=== PATIENT | female | born 1950 | race Caucasian/White ===

== ENCOUNTER 2019-05-21 16:20 | Emergency (ER) | payer MEDICARE, MEDICAID, SELFPAY ==
[2019-05-21 16:22] VITALS: BP 141/64; PULSE 85; RESP 22; TEMP 36.5; O2SAT 97; BMI 51.5
--- NOTE | 2019-05-21 16:24 | ED_ITS ---
Entered by Jeanette Murry, acting as scribe for Derick Nolen DO HPI - Neuro Symptoms/Deficit General: Chief Complaint: Neuro Symptoms/Deficit Stated Complaint: L SIDE FACE PAIN/NUMBNESS Time Seen by Provider: 05/21/19 16:21 Source: patient Mode of arrival: EMS Limitations: no limitations History of Present Illness: HPI Narrative: 68 yo f came to the er by [facility] for a headache and left sided face tingling. 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 Pt states that she is out of breath and she also states that she has under alot of stress. Pts just had a stroke so she has been taking care of him. Pt was going to [facility] and she couldn't see that form to sign so she admitted that it was not normal for her at all. Pt also states that she has pain and burning with urination along with some epigastric pain. 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 police captain) Location: left face History of same: No Severity: mild Quality: weak, numb and tingling Relieving factors: none Exacerbating factors: none Context: sudden onset On Anticoagulants: No Associated symptoms: Reports headache(s); Deny chest pain, malaise, nausea or vomiting Treatments Prior to Arrival: none Review of Systems General: Reports: other (negative unless marked) Const: Denies: fever, chills, body aches, change in appetite, fatigue or malaise ENMT: Denies: throat pain, ear pain, nasal discharge or nasal congestion Card: Reports: shortness of breath on exertion; Denies: chest pain, edema or shortness of breath when lying down Resp: Denies: shortness of breath, productive cough or non-productive cough GI: Denies: abdominal pain, nausea, vomiting, vomiting blood, coffee grounds in vomit, diarrhea, constipation, bloating, blood in stool or black tarry stool : Denies: flank pain, difficulty urinating, painful urination, urinary frequency or urinary urgency Skin/Breast: Denies: rash or itching Neuro: Reports: headache, numbness in extremities, weakness in extremities and dizziness PFSH ED PFSH: Social History Smoking and tobacco status: never smoked NIH stroke score NIHSS: Level Of Consciousness - 1a: 0 Level Of Consciousness Questions - 1b: Both Correct Level Of Consciousness Commands - 1c: Both Correct Best Gaze - 2: Normal Visual Hodge - 3: No Visual Loss Facial Palsy - 4: Normal Motor Arm Right - 5: No Drift Motor Arm Left - 5: No Drift Motor Leg Right - 6: No Drift Motor Leg Left - 6: No Drift Limb Ataxia - 7: Absent Sensory - 8: Normal Best Language - 9: No Aphasia Dysarthia - 10: Normal Extinction And Inattention - 11: 0 Score: Total Score: 0 Physical Exam Const: COMMON NORMALS: no apparent distress GENERAL APPEARANCE: cooperative and comfortable ORIENTATION/CONSCIOUSNESS: Yes awake, Yes oriented to person, Yes oriented to place and Yes oriented to time HENMT: COMMON NORMALS: normocephalic, head/scalp atraumatic, hearing grossly normal bilaterally, external ears normal, EAC's normal, TM's normal bilaterally, nasal mucous membranes and turbinates normal, moist oral mucous membranes and oropharynx normal HEAD & SCALP: normocephalic and atraumatic NOSE: nasal mucous membranes and turbinates normal EXTERNAL EAR: Yes external ears normal EXTERNAL AUDITORY CANAL: EAC's normal TYMPANIC MEMBRANE: TM's normal bilaterally Eye: COMMON NORMALS: PERRL, EOMs intact bilaterally, conjunctivae normal and no scleral icterus CONJUNCTIVA: Yes conjunctivae normal PUPIL: Yes PERRL Neck/C-Spine: COMMON NORMALS: full ROM, no lymphadenopathy, supple and no JVD Lymph: LYMPHATIC: no lymphadenopathy noted and no lymphedema noted Resp: COMMON NORMALS: normal respiratory effort, no retractions, no use of accessory muscles and clear to auscultation bilaterally AUSCULTATION: clear to auscultation bilaterally Cardio: COMMON NORMALS: no JVD, regular rate, regular rhythm and no murmurs RATE: regular rate RHYTHM: regular rhythm GI: COMMON NORMALS: soft to palpation and no hepatosplenomegaly AUSCULTATION: Yes normoactive bowel sounds PALPATION: Yes soft, No tender, No guarding and Yes no hepatosplenomegaly Extremity: COMMON NORMALS: normal to inspection, normal capillary refill, no clubbing, cyanosis or edema, no calf tenderness and no pedal edema Neuro: SENSORIUM/ORIENTATION: Yes oriented to person, Yes oriented to place and Yes oriented to time Skin: COMMON NORMALS: no rashes or lesions noted GENERAL SKIN EXAM: no rashes or lesions noted Course ED course: Symptoms have resolved. Patient is awake alert and oriented she had no focal neurologic deficits on arrival and has none now. Given meclizine PRN for the dizziness will go ahead and discharge her home follow-up with her primary care doctor return if has worsening problems. Will also treat for ehr cystitis. Follow up with PCP within 1 wk Vital Signs: Vital signs: Vital Signs Temperature 97.7 F 05/21/19 16:22 Pulse Rate 78 05/21/19 18:36 Respiratory Rate 16 05/21/19 18:36 Blood Pressure 160/105 05/21/19 18:36 Pulse Oximetry 97 05/21/19 16:22 MDM - Neuro Symptoms/Deficit Lab Data: Labs: Lab Results 05/21/19 05/21/19 05/21/19 Range/Units 16:49 16:49 16:49 WBC 11.5 H (4.0-10.0) 10^3/ uL RBC 4.88 (4.1-5.3) 10^6/u L Hgb 11.6 (11.5-15.3) g/dL Hct 38.6 (37.0-47.0) % MCV 79.1 L (81-99) fL MCH 23.8 L (28.0-34.0) pg MCHC 30.1 (30.0-36.0) g/dL RDW 18.4 H (12.1-15.1) % Plt Count 357 (130-400) 10^3/c mm MPV 9.9 (7.4-10.4) fL Neut % (Auto) 82.5 % Lymph % (Auto) 11.2 % [place] % (Auto) 4.8 % Eos % (Auto) 1.0 % Baso % (Auto) 0.2 % Neut # (Auto) 9.5 H (1.8-7.7) 10^3/u L Lymph # (Auto) 1.3 (0.8-4.8) 10^3/u L [place] # (Auto) 0.6 (0.2-0.9) 10^3/u L Eos # (Auto) 0.1 (0.0-0.8) 10^3/u L Baso # (Auto) 0.0 (0.0-0.1) 10^3/u L Nucleated RBC % (a uto) 0 % Nucleated RBCs # 0.0 /100WBC PT 13.00 (10.5-13.3) SECO NDS INR 0.95 (0.8-1.2) APTT 36.1 (23.9-36.7) SECO NDS Sodium 139 (136-145) mmol/L Potassium 4.1 (3.5-5.1) mmol/L Chloride 100 (98-107) mmol/L Carbon Dioxide 28 (22-29) mmol/L Anion Gap 15.1 (5-19) BUN 11 (8-23) mg/dL Creatinine 0.8 (0.5-0.9) mg/dL GFR Calculation 71.8 L (90-130) mL/min Glucose 101 (65-115) mg/dL Calcium 9.6 (8.5-10.5) mg/dL Total Bilirubin 0.3 (0.15-1.2) mg/dL AST 14 (0-32) U/L ALT 8 (0-33) U/L Alkaline Phosphata se 111 H (35-105) IU/L Total Protein 7.4 (6.6-8.7) g/dL Albumin 3.6 (3.5-5.2) g/dL Globulin 3.8 (1.3-4.6) g/dL Urine Color (Yellow) Urine Appearance (CLEAR) Urine pH (5-7) Ur Specific Gravit y (1.005-1.030) Urine Protein (Negative) Urine Glucose (UA) (Normal) Urine Ketones (Negative) Urine Blood (Negative) Urine Nitrate (Negative) Urine Bilirubin (NEGATIVE) Urine Urobilinogen (Negative) mg/dL Ur Leukocyte Nazia ase (Negative) Urine RBC (0-2) /hpf Urine WBC (0-5) /hpf Ur Squamous Epith Cells (0-5) Urine Bacteria (NONE) Urine Opiates Scre en (Negative) ng/mL Ur Barbiturates Sc reen (Negative) ng/mL Ur Phencyclidine S crn (Negative) ng/mL Ur Amphetamines Sc reen (Negative) ng/mL U Benzodiazepines Scrn (Negative) ng/mL Urine Cocaine Scre en (Negative) ng/mL U Marijuana (THC) Screen (Negative) ng/mL 05/21/19 05/21/19 Range/Units 17:36 17:36 WBC (4.0-10.0) 10^3/ uL RBC (4.1-5.3) 10^6/u L Hgb (11.5-15.3) g/dL Hct (37.0-47.0) % MCV (81-99) fL MCH (28.0-34.0) pg MCHC (30.0-36.0) g/dL RDW (12.1-15.1) % Plt Count (130-400) 10^3/c mm MPV (7.4-10.4) fL Neut % (Auto) % Lymph % (Auto) % [place] % (Auto) % Eos % (Auto) % Baso % (Auto) % Neut # (Auto) (1.8-7.7) 10^3/u L Lymph # (Auto) (0.8-4.8) 10^3/u L [place] # (Auto) (0.2-0.9) 10^3/u L Eos # (Auto) (0.0-0.8) 10^3/u L Baso # (Auto) (0.0-0.1) 10^3/u L Nucleated RBC % (a uto) % Nucleated RBCs # /100WBC PT (10.5-13.3) SECO NDS INR (0.8-1.2) APTT (23.9-36.7) SECO NDS Sodium (136-145) mmol/L Potassium (3.5-5.1) mmol/L Chloride (98-107) mmol/L Carbon Dioxide (22-29) mmol/L Anion Gap (5-19) BUN (8-23) mg/dL Creatinine (0.5-0.9) mg/dL GFR Calculation (90-130) mL/min Glucose (65-115) mg/dL Calcium (8.5-10.5) mg/dL Total Bilirubin (0.15-1.2) mg/dL AST (0-32) U/L ALT (0-33) U/L Alkaline Phosphata se (35-105) IU/L Total Protein (6.6-8.7) g/dL Albumin (3.5-5.2) g/dL Globulin (1.3-4.6) g/dL Urine Color Yellow (Yellow) Urine Appearance Clear (CLEAR) Urine pH 6 (5-7) Ur Specific Gravit y 1.010 (1.005-1.030) Urine Protein Neg (Negative) Urine Glucose (UA) Norm (Normal) Urine Ketones Negative (Negative) Urine Blood 2+ H (Negative) Urine Nitrate Negative (Negative) Urine Bilirubin Neg (NEGATIVE) Urine Urobilinogen Norm (Negative) mg/dL Ur Leukocyte Nazia ase Negative (Negative) Urine RBC 0-4 H (0-2) /hpf Urine WBC 15-25 H (0-5) /hpf Ur Squamous Epith Cells 5-10 H (0-5) Urine Bacteria Trace (NONE) Urine Opiates Scre en Negative (Negative) ng/mL Ur Barbiturates Sc reen Negative (Negative) ng/mL Ur Phencyclidine S crn Negative (Negative) ng/mL Ur Amphetamines Sc reen Negative (Negative) ng/mL U Benzodiazepines Scrn Positive H (Negative) ng/mL Urine Cocaine Scre en Negative (Negative) ng/mL U Marijuana (THC) Screen Negative (Negative) ng/mL Discharge Plan Discharge Patient Disposition: Home, Self-Care Clinical Impression: Orthostasis, Dizziness, Cystitis Condition: Stable Prescriptions: New meclizine 25 mg tablet 25 mg PO QID PRN (Reason: dizziness) Qty: 20 RF: 0 Macrobid 100 mg capsule 100 mg PO BID 7 Days Qty: 14 RF: 0 Referrals: Riley Walker MD [Primary Care Provider] - Discharge Diet: Usual diet Discharge Activity: Increase activity as tolerated Interventions: ED Discharge Assessment Last Done: 05/21/19 18:36 Discharge Date/Time: 05/21/19 18:37 Coding Level of Care Code ED Scouring Pads Supervisor for Chg Fwd Exam Comprehensive The documentation recorded by the Jeanmarie davidson Stephanie Lyn, accurately reflects the service I personally performed and the decisions made by Callum chaves Curtis L, DO May 21, 2019 16:20
--- NOTE | 2019-05-21 16:36 | XR_ITS ---
WS: [id number] XR chest 1V portable [id number] REASON FOR EXAM: dyspnea FINDINGS: The cardiac silhouette is borderline enlarged. Increased peribronchial markings are seen bilaterally. These are slightly accentuated since earlier e xam of October 24, 2017. There is degenerate changes with ankylosing findings throughout the thoracic spine. The hilum and apices normal. XR/XR chest 1V portable [id number] IMPRESSION: Increased markings are seen throughout both lung [place] compared to previous ex am most likely from bronchitis.
--- NOTE | 2019-05-21 16:36 | ECG_ITS ---
Measurements Intervals [place] Rate: 79 P: 7 IA: 133 QRS: 34 QRSD: 105 T: 18 QT: 379 QTc: 436 SINUS RHYTHM Compared to ECG 10/11/2016 23:16:07 No significant changes Electronically Signed On 05-22-2019 16:53:18 DIRECTOR PACKAGING by Tulio Faust M.D. [email or web address]
--- NOTE | 2019-05-21 16:36 | CTR_ITS ---
PROCEDURE INFORMATION: Exam: CT Head Without Contrast Exam date and time: 05/21/2019 5:01 PM Age: 68 years old Clinical indication: Weakness, facial; Additional info: Symptoms of acute stroke TECHNIQUE: Imaging protocol: Computed tomography of the head without contrast. Total DLP: 847.29 mGy-cm Radiation optimization: All CT scans at this facility use at least one of these dose optimization techniques: automated exposure control; mA and/or kV adjustment per patient size (includes targeted exams where dose is matched to clinical indication); or iterative reconstruction. COMPARISON: CT head wo con* [id number] 06/24/2015 2:00 PM FINDINGS: Brain: Unremarkable for age. No hemorrhage. Unremarkable white matter. No mass effect. No visible evidence of active or acute intracranial pathologic process or trauma. Ventricles: Unremarkable for age. No ventriculomegaly. Bones/joints: Unremarkable. No acute fracture. Sinuses: Visualized sinuses are unremarkable. No fluid levels. Mastoid air cells: Visualized mastoid air cells are well aerated. Soft tissues: Unremarkable. CT/CT head wo con* [id number] IMPRESSION: 1. No acute intracranial abnormality. 2. Aspects score 10 Radiation Dose CTDIVOL = (mGy): DLP = 847.29 (mGy-cm)
[2019-05-21 16:56] LABS: Basophils % 0.2 %; Eosinophils # 0.1 10^3/uL (0.0-0.8); Hematocrit 38.6 % (37.0-47.0); Hemoglobin 11.6 g/dL (11.5-15.3); Lymphocytes # 1.3 10^3/uL (0.8-4.8); Lymphocytes % 11.2 %; Mean Corpuscular HGB Conc 30.1 g/dL (30.0-36.0); Mean Corpuscular Hemoglobin 23.8 pg (28.0-34.0); Mean Corpuscular Volume 79.1 fL (81-99); Mean Platelet Volume 9.9 fL (7.4-10.4); Monocytes # 0.6 10^3/uL (0.2-0.9); Monocytes % 4.8 %; Neutrophils # 9.5 10^3/uL (1.8-7.7); Neutrophils % 82.5 %; Nucleated Red Blood Cells % 0 %; Platelet Count 357 10^3/cmm (130-400); Red Blood Count 4.88 10^6/uL (4.1-5.3); Red Cell Distribution Width 18.4 % (12.1-15.1); White Blood Count 11.5 10^3/uL (4.0-10.0)
[2019-05-21 17:05] LABS: INR 0.95 (0.8-1.2)
[2019-05-21 17:06] LABS: Partial Thromboplastin Time 36.1 SECONDS (23.9-36.7)
[2019-05-21 17:12] LABS: Alanine Aminotransferase 8 U/L (0-33); Albumin Level 3.6 g/dL (3.5-5.2); Alkaline Phosphatase 111 IU/L (35-105); Anion Gap 15.1 (5-19); Aspartate Amino Transferase 14 U/L (0-32); Blood Urea Nitrogen 11 mg/dL (8-23); Calcium 9.6 mg/dL (8.5-10.5); Carbon Dioxide 28 mmol/L (22-29); Chloride 100 mmol/L (98-107); Globulin 3.8 g/dL (1.3-4.6); Glomerular Filtration Rate 71.8 mL/min (90-130); Glucose 101 mg/dL (65-115); Potassium 4.1 mmol/L (3.5-5.1); Sodium 139 mmol/L (136-145); Total Bilirubin 0.3 mg/dL (0.15-1.2); Total Protein 7.4 g/dL (6.6-8.7)
[2019-05-21 18:05] LABS: Add Urine Microscopic? YES; Bilirubin Urine Neg (NEGATIVE); Blood Urine 2+ (Negative); Glucose Urine UA Norm (Normal); Ketones Urine Negative (Negative); Leukocyte Esterase Urine Negative (Negative); Nitrate Urine Negative (Negative); Protein Urine Neg (Negative); Urine Appearance Clear (CLEAR); Urine Color Yellow (Yellow); Urobilinogen Urine Norm (Negative); pH Urine 6 (5-7)
[2019-05-21 18:10] LABS: Amphetamines Screen Urine Negative (Negative); Bacteria Urine TRACE; Barbiturates Screen Urine Negative (Negative); Benzodiazepines Screen Urine Positive (Negative); Cocaine Screen Urine Negative (Negative); Opiate Screen Urine Negative (Negative); PCP Screen Urine Negative (Negative); RBC Urine 0-4 /hpf (0-2); THC Screen Urine Negative (Negative); WBC Urine 15-25 /hpf (0-5)
[2019-05-21 18:11] LABS: Add Urine Culture? Yes
[2019-05-21 18:36] VITALS: BP 160/105; PULSE 78; RESP 16
== END 2019-05-21 18:37 | disposition home or self-care (01) ==
PROVIDERS: Emergency Provider Family Medicine; PCP Family Medicine
DX: R42 Dizziness and giddiness (principal); N30.90 Cystitis, unspecified without hematuria; R51 Headache; R20.0 Anesthesia of skin; R10.13 Epigastric pain
CPT/HCPCS: 12345; 36415; 70450; 71045; 80053; 80307; 81001; 85025; 85610; 85730; 87086; 93005; 99282; 99284

== ENCOUNTER 2019-11-12 19:16 | Observation (INO) | payer MEDICARE, MEDICAID, SELFPAY ==
[2019-11-12 19:17] VITALS: BP 197/90; PULSE 101; RESP 24; TEMP 37.4; O2SAT 93; BMI 51.5
--- NOTE | 2019-11-12 19:25 | XR_ITS ---
WS: [id number] Portable AP upright chest, 11/12/2019 Clinical Data: COVID exposure, fever, SOB Comparison: Portable chest, 05/21/2019. Findings: There are patchy opacities throughout both lungs consistent with acute pneumonia. The heart is normal. No pneumothorax is seen. The aortic arch and descending aorta show tortuosity. XR/XR chest 1V portable [id number] Impression: Bilateral opacities consistent with acute pneumonia.
--- NOTE | 2019-11-12 19:27 | W.ED.SOB ---
HPI - SOB/Dyspnea General: Chief Complaint: Shortness of Breath/Dyspnea Stated Complaint: Cough, Fever, SOB Time Seen by Provider: 11/12/19 19:25 History of Present Illness: HPI Narrative: This patient is a 68-year-old female presenting today with shortness of breath and cough. The symptoms have been present for about 3 days. Her with whom she lives is COVID positive and received that test result on of last week. She has not been isolated from him. He has not been very symptomatic. She has a history of bronchitis and morbid obesity. She does not normally use oxygen at home. EMS documented a room air sat of 91%. She is tachypneic. She has not measured her temperature at home. She took ibuprofen earlier today. MD elicited complaint: shortness of breath Pertinent past history: other (Episodes of bronchitis) Onset (ago): day(s) (3) Timing: constant and progressively worsening Severity: moderate Exacerbating factors: exertion, movement, coughing and talking Relieving factors: nothing Associated symptoms: Reports fever(s); Deny abdominal pain, chest pain, nausea or vomiting Review of Systems General: Reports: 10 or more systems reviewed and unremarkable except in HPI and below Const: Reports: fever(s), chills, fatigue and malaise Eyes: Denies: change in vision ENMT: Denies: odynophagia Card: Denies: chest pain or swelling of feet/ankles Resp: Reports: dyspnea and non-productive cough; Denies: productive cough GI: Denies: abdominal pain, nausea or vomiting : Denies: flank pain or difficulty voiding Musc: Denies: neck pain or back pain Skin/Breast: Denies: rash Neuro: Denies: headache(s), numbness in extremities or weakness in extremities Danny/Lymph: Denies: easy bruising or easy bleeding PFSH ED PFSH: Social History Smoking and tobacco status: never smoked Physical Exam Const: COMMON NORMALS: patient oriented x3, no limitations and alert GENERAL APPEARANCE: cooperative, in distress and anxious NUTRITIONAL APPEARANCE: obese morbidly obese ORIENTATION/CONSCIOUSNESS: Yes awake HENMT: HEAD & SCALP: normal to inspection FACE & SINUS: normal facial exam Eye: GENERAL EYE: appearance normal, both eyes and all related structures Neck/C-Spine: COMMON NORMALS: supple, no meningeal signs and no JVD Chest: COMMONS NORMALS: normal inspection of the chest Resp: EFFORT & INSPECTION: Yes tachypneic and Yes uses accessory muscles AUSCULTATION: crackles (Left greater than right) Laterality: bilateral Cardio: COMMON NORMALS: no JVD, regular rate, regular rhythm and No murmurs present (Cardio) RATE: regular rate RHYTHM: regular rhythm GI: COMMON NORMALS: Normal to inspection, nondistended, normoactive bowel sounds present, Soft to palpation and non-tender INSPECTION: Yes normal to inspection AUSCULTATION: Yes normoactive bowel sounds PALPATION: Yes Soft to palpation Back/Pelvis: COMMON NORMALS: thoracic and lumbar spine normal to inspection Extremity: COMMON NORMALS: normal to inspection Neuro: COMMON NORMALS: patient oriented x3, moves all extremities, no focal motor deficits and no sensory deficits noted SENSORIUM/ORIENTATION: Yes alert MENINGEAL SIGNS: Yes no meningeal signs Psych: COMMON NORMALS: mental status grossly normal, cooperative and normal affect Skin: COMMON NORMALS: no rashes or lesions noted and turgor normal GENERAL SKIN EXAM: no rashes or lesions noted and turgor normal Course ED course: Patient with a known household exposure to COVID. She presents with typical COVID symptoms. Sat for EMS was 91%. On my initial evaluation she was 93% here however on repeat check her sat was now 88%. I put her on 2 L of nasal cannula oxygen. She does not have a lot of comorbidities but she is obese. Chest x-ray reflects COVID pneumonia. Labs reflect a significant amount of inflammation. I gave her a dose of Lovenox, dexamethasone and I will admit her to the viral ICU. Dr. Jimenez is planning to start her on Remdesivir. Vital Signs: Vital signs: Vital Signs Temperature 99.4 F 11/12/19 19:17 Pulse Rate 92 11/12/19 20:26 Respiratory Rate 20 H 11/12/19 20:26 Blood Pressure 188/98 11/12/19 20:26 Pulse Oximetry 95 11/12/19 20:26 MDM - SOB/Dyspnea Lab Data: Labs: Lab Results 11/12/19 11/12/19 11/12/19 Range/Units 20:15 20:15 20:15 WBC 11.5 H (4.0-10.0) 10^3/ uL RBC 5.27 (4.1-5.3) 10^6/u L Hgb 12.3 (11.5-15.3) g/dL Hct 41.1 (37.0-47.0) % MCV 78.0 L (81-99) fL MCH 23.3 L (28.0-34.0) pg MCHC 29.9 L (30.0-36.0) g/dL RDW 19.2 H (12.1-15.1) % Plt Count 276 (130-400) 10^3/c mm MPV 10.3 (7.4-10.4) fL Neut % (Auto) 92.8 % Lymph % (Auto) 2.9 % [place] % (Auto) 3.4 % Eos % (Auto) 0.1 % Baso % (Auto) 0.2 % Neut # (Auto) 10.70 H (1.8-7.7) 10^3/u L Lymph # (Auto) 0.3 L (0.8-4.8) 10^3/u L [place] # (Auto) 0.4 (0.2-0.9) 10^3/u L Eos # (Auto) 0.0 (0.0-0.8) 10^3/u L Baso # (Auto) 0.0 (0.0-0.1) 10^3/u L Nucleated RBC % (a uto) 0 % Nucleated RBCs # 0.0 /100WBC PT 12.90 (12.1-14.9) SECO NDS INR 0.94 (0.8-1.2) Fibrinogen 772 H (174-498) mg/dL D-Dimer 2.80 H (0-0.59) ug/mIFE U Lactic Acid 1.2 (0.5-2.2) mmol/L Influenza Type A A g (Negative) Influenza Type B A g (Negative) SARS-CoV-2 Ag (Rap id) (Negative) 11/12/19 11/12/19 Range/Units 20:15 20:15 WBC (4.0-10.0) 10^3/ uL RBC (4.1-5.3) 10^6/u L Hgb (11.5-15.3) g/dL Hct (37.0-47.0) % MCV (81-99) fL MCH (28.0-34.0) pg MCHC (30.0-36.0) g/dL RDW (12.1-15.1) % Plt Count (130-400) 10^3/c mm MPV (7.4-10.4) fL Neut % (Auto) % Lymph % (Auto) % [place] % (Auto) % Eos % (Auto) % Baso % (Auto) % Neut # (Auto) (1.8-7.7) 10^3/u L Lymph # (Auto) (0.8-4.8) 10^3/u L [place] # (Auto) (0.2-0.9) 10^3/u L Eos # (Auto) (0.0-0.8) 10^3/u L Baso # (Auto) (0.0-0.1) 10^3/u L Nucleated RBC % (a uto) % Nucleated RBCs # /100WBC PT (12.1-14.9) SECO NDS INR (0.8-1.2) Fibrinogen (174-498) mg/dL D-Dimer (0-0.59) ug/mIFE U Lactic Acid (0.5-2.2) mmol/L Influenza Type A A g Negative (Negative) Influenza Type B A g Negative (Negative) SARS-CoV-2 Ag (Rap id) Positive H (Negative) Discharge Plan Discharge Prescriptions: No Action citalopram 40 mg tablet 40 mg PO DAILY RF: 0 alprazolam 0.5 mg tablet 0.5 mg PO BID RF: 0 famotidine 20 mg tablet 20 mg PO BID RF: 0 pregabalin 150 mg capsule 150 mg PO BID RF: 0 ibuprofen 200 mg Tablet 200 - 400 mg PO Q4H PRN (Reason: PAIN/FEVER) RF: 0 Nyquil See Rx Instructions .ROUTE .COMPLEX RF: 0 Coding Level of Care Code ED Manager Balance for [facility] Fwd Exam Comprehensive
[2019-11-12] MEDS: dexamethasone 10 mg/mL INJ IVP (20:23)
[2019-11-12] MEDS: enoxaparin 30 mg/0.3 mL Syringe SUBCUT (20:23)
[2019-11-12] MEDS: enoxaparin 100 mg/mL Syringe SUBCUT (20:23)
[2019-11-12 20:26] VITALS: BP 188/98; PULSE 92; RESP 20; O2SAT 95
[2019-11-12 20:28] LABS: Basophils % 0.2 %; Eosinophils % 0.1 %; Hematocrit 41.1 % (37.0-47.0); Hemoglobin 12.3 g/dL (11.5-15.3); Lymphocytes # 0.3 10^3/uL (0.8-4.8); Lymphocytes % 2.9 %; Mean Corpuscular HGB Conc 29.9 g/dL (30.0-36.0); Mean Corpuscular Hemoglobin 23.3 pg (28.0-34.0); Mean Platelet Volume 10.3 fL (7.4-10.4); Monocytes # 0.4 10^3/uL (0.2-0.9); Monocytes % 3.4 %; Neutrophils % 92.8 %; Nucleated Red Blood Cells % 0 %; Platelet Count 276 10^3/cmm (130-400); Red Blood Count 5.27 10^6/uL (4.1-5.3); Red Cell Distribution Width 19.2 % (12.1-15.1); White Blood Count 11.5 10^3/uL (4.0-10.0)
[2019-11-12 20:40] LABS: INR 0.94 (0.8-1.2)
[2019-11-12 20:41] LABS: Fibrinogen 772 mg/dL (174-498)
[2019-11-12 20:46] LABS: Lactic Sepsis W/Reflex 1.2 mmol/L (0.5-2.2)
[2019-11-12 20:54] LABS: Influenza A by IFA Negative (Negative); Influenza B by IFA Negative (Negative)
[2019-11-12 21:24] LABS: SARS Covid-2 Antigen Positive (Negative)
[2019-11-12 23:24] VITALS: BP 148/98; PULSE 92; RESP 18; O2SAT 96
[2019-11-12 23:49] VITALS: PULSE 94; RESP 20; TEMP 37.4
[2019-11-12 23:52] LABS: Alanine Aminotransferase 15 U/L (0-33); Albumin Level 3.7 g/dL (3.5-5.2); Alkaline Phosphatase 121 IU/L (35-105); Anion Gap 16.6 (5-19); Aspartate Amino Transferase 20 U/L (0-32); Blood Urea Nitrogen 9 mg/dL (8-23); Carbon Dioxide 26 mmol/L (22-29); Chloride 100 mmol/L (98-107); Glomerular Filtration Rate 55.5 mL/min (90-130); Glucose 124 mg/dL (65-115); Osmolality Calculated 285 mOsm/kg (285-295); Potassium 3.6 mmol/L (3.5-5.1); Sodium 139 mmol/L (136-145); Total Bilirubin 0.3 mg/dL (0.15-1.2); Total Protein 7.7 g/dL (6.6-8.7)
[2019-11-13] VITALS (12 sets, daily range): BP systolic 117–176; BP diastolic 65–83; PULSE 77–92; RESP 18–22; TEMP 36.6–37.4; O2SAT 93–96
[2019-11-13 00:57] LABS: Procalcitonin 0.08 ng/mL (0-0.5)
[2019-11-13 01:16] LABS: C Reactive Protein 170.7 mg/L (0.0-4.9); Ferritin 123 ng/mL (15-150)
[2019-11-13 06:06] LABS: Basophils % 0.1 %; Eosinophils % 0.1 %; Hematocrit 41.3 % (37.0-47.0); Hemoglobin 12.4 g/dL (11.5-15.3); Lymphocytes # 0.4 10^3/uL (0.8-4.8); Lymphocytes % 3.4 %; Mean Corpuscular Hemoglobin 23.1 pg (28.0-34.0); Mean Corpuscular Volume 76.9 fL (81-99); Mean Platelet Volume 11.5 fL (7.4-10.4); Monocytes # 0.1 10^3/uL (0.2-0.9); Monocytes % 1.1 %; Neutrophils # 11.58 10^3/uL (1.8-7.7); Neutrophils % 94.9 %; Nucleated Red Blood Cells % 0 %; Platelet Count 294 10^3/cmm (130-400); Red Blood Count 5.37 10^6/uL (4.1-5.3); Red Cell Distribution Width 18.8 % (12.1-15.1); White Blood Count 12.2 10^3/uL (4.0-10.0)
[2019-11-13 06:38] LABS: Fibrinogen 753 mg/dL (174-498)
--- NOTE | 2019-11-13 09:09 | P.SS_ITS ---
Short Stay Summary Providers Date of Admit/Discharge: 11/13/19 Attending Provider: Ernie Otero MD Primary Care Provider: Riley Walker MD Chief Complaint: Cough, Fever, SOB HPI History of Present Illness . .Miguel A Pollard is a 68 year old female presented yesterday for subjective fevers 99.6 and productive cough. She uses 2-1/2 L at home continuously and this morning saturates 93% on 2 L. Reports having chronic dyspnea on exertion. Reports having white phlegm productive cough and tested positive for COVID-19. Reports that her is also positive and recovered. This morning patient denies shortness of breath or chest pain. She remained afebrile since admission. She adamantly wants to go home. Her white blood cell count slightly up and is felt to be related to steroids. She has elevated CRP. Her labs this morning hemolyzed but her CMP yesterday was in normal range. She was able to walk to the bedside commode without difficulty. She had normal bowel movement without evidence of melena or hematochezia. She lives with her . Denies previous history of diabetes, heart disease or stroke. Review of Systems Const: Reports: fever(s); Denies: chills Eyes: Denies: change in vision ENMT: Denies: throat pain or change in hearing Card: Denies: chest pain, edema or lightheadedness Resp: Reports: productive cough; Denies: dyspnea (Does have chronic dyspnea on exertion.) GI: Denies: abdominal pain, nausea, vomiting, dysphagia, diarrhea, constipation, hematochezia or melena : Denies: difficulty voiding Musc: Denies: joint pain or joint swelling Skin/Breast: Denies: rash or erythema Neuro: Denies: headache(s) or weakness in extremities Psych: Denies: depression or suicidal ideation Endo: Denies: excessive sweating Danny/Lymph: Denies: easy bleeding or tender lymph nodes All/Imm: Denies: throat swelling Home Meds/Allergies Home Medications and Allergies Home Medications Medication Instructions Recorded Confirmed Type Nyquil See Rx Instructions .ROUTE .COMPLEX 11/12/19 11/12/19 History alprazolam 0.5 mg PO BID 11/12/19 11/12/19 History citalopram 40 mg PO DAILY 11/12/19 11/12/19 History famotidine 20 mg PO BID 11/12/19 11/12/19 History ibuprofen 200 - 400 mg PO Q4H PRN 11/12/19 11/12/19 History pregabalin 150 mg PO BID 11/12/19 11/12/19 History Allergies Allergy/AdvReac Type Severity Reaction Status Date / Time codeine Allergy ADR-Nausea Verified 11/12/19 19:56 morphine Allergy Unknown Verified 11/12/19 19:56 PFSH Acute PFSH: Medical History (Updated 11/13/19 @ 09:29 by Ernie Otero MD) Arthritis Chronic respiratory failure with hypoxia Depression with anxiety GERD (gastroesophageal reflux disease) Morbid obesity with BMI of 50.0-59.9, adult Surgical History (Updated 11/13/19 @ 09:29 by Ernie Otero MD) H/O knee surgery Previous section Family History (Updated 11/13/19 @ 09:26 by Ernie Otero MD) Father Alcoholism Mother Psychiatric illness Social History Smoking and tobacco status: never smoked Vitals/I&O/Wt Last Vital Signs Temp 97.9 F 11/13/19 05:00 Pulse 92 11/13/19 06:00 Resp 20 H 11/13/19 05:00 BP 123/67 11/13/19 06:00 Pulse Ox 93 11/13/19 06:00 11/12/19 11/13/19 11/13/19 22:59 06:59 14:59 Intake Total 200 / 200 Balance 200 / 200 Weight last 48 hrs Weight 136.078 kg Physical Exam Const: COMMON NORMALS: no acute distress, patient oriented x3 and alert HENMT: COMMON NORMALS: normocephalic and atraumatic HEAD & SCALP: normocephalic and atraumatic Eye: COMMON NORMALS: EOMs intact bilaterally, conjunctivae normal and no scleral icterus CONJUNCTIVA: Yes conjunctivae normal Neck/C-Spine: COMMON NORMALS: no lymphadenopathy and no meningeal signs Lymph: LYMPHATIC: no lymphadenopathy noted Chest: COMMONS NORMALS: normal palpation of entire chest wall Resp: COMMON NORMALS: No use of accessory muscles (But overall decreased air movement.) and clear to auscultation bilaterally AUSCULTATION: clear to auscultation bilaterally Cardio: COMMON NORMALS: regular rate, regular rhythm and No murmurs present (Cardio) RATE: regular rate RHYTHM: regular rhythm OTHER: No lower extremity edema GI: COMMON NORMALS: Soft to palpation and non-tender PALPATION: Yes Soft to palpation RECTAL EXAM: deferred : COMMON NORMALS: Yes no CVA tenderness BLADDER/KIDNEY EXAM: Yes no CVA tenderness Back/Pelvis: COMMON NORMALS: no CVA tenderness and thoracic and lumbar spine normal to inspection Extremity: COMMON NORMALS: normal to inspection and capillary refill normal Neuro: COMMON NORMALS: patient oriented x3 and no focal motor deficits SENSORIUM/ORIENTATION: Yes alert MENINGEAL SIGNS: Yes no meningeal signs Psych: COMMON NORMALS: mental status grossly normal, Normal thought process present and cooperative THOUGHT PROCESS: Normal thought process present Skin: OTHER: Candidal intertrigo under breasts and inguinal area. Hospital Course Admission Diagnoses: As above. Hospital Course: Patient presented with subjective fever and a cough. Diagnosed with community-acquired pneumonia suggestive of COVID-19. Secondary bacterial infection cannot be ruled out. Patient is currently not in any distress and saturating 93% on 2 L by nasal cannula. She is adamantly wants to go home and at this point I think it is okay for patient to be dismissed. She has home health and this should be continued. I have discussed with patient as well as patient's son over the phone and emphasized the importance of patient to come back should her condition worsen. Patient will be dismissed on dexamethasone as well as Omnicef and doxycycline. SSS Data Data Completed and Pending: Completed Studies During Hospitalization Category Date Time Status XR chest 1V [place]ose ble [id number] Stat Exams 11/12/19 19:25 Completed Pending at discharge Category Date Time Status Basic Metabolic P em AM LABS Lab 11/14/19 04:00 Ordered Basic Metabolic P em AM LABS Lab 11/15/19 04:00 Ordered Basic Metabolic P em Routine Lab 11/13/19 07:50 Received Blood Culture Sta t Lab 11/12/19 20:15 Results C Reactive Protei n Routine Lab 11/13/19 07:50 Received Complete Blood Co unt w/Auto AM LABS Lab 11/14/19 04:00 Ordered Complete Blood Co unt w/Auto AM LABS Lab 11/15/19 04:00 Ordered Creatine Phosphok inase Routine Lab 11/13/19 07:50 Received Lactate Dehydroge nase Routine Lab 11/13/19 07:50 Received Liver Panel Routi ne Lab 11/13/19 07:50 Received NT Pro B Type Yaritza riuretic Pept Rout ine Lab 11/13/19 07:50 Received Diagnoses at Discharge Discharge Diagnosis (1) Community acquired pneumonia: Status: Acute (2) Chronic respiratory failure with hypoxia: Status: Acute (3) Morbid obesity with BMI of 50.0-59.9, adult: Status: Acute (4) COVID-19: Status: Acute (5) Depression with anxiety: Status: Acute (6) Candidal intertrigo: Status: Acute Discharge Plan Discharge Patient Disposition: Home Health Service Condition: Stable Prescriptions: New dexamethasone 6 mg tablet 6 mg PO DAILY Qty: 7 RF: 0 doxycycline hyclate 100 mg tablet 100 mg PO Q12H 7 Days Qty: 14 RF: 0 nystatin 100,000 unit/gram cream 1 applic TOPICAL BID Qty: 15 RF: 0 acetaminophen [Tylenol 8 Hour] 650 mg tablet extended release 650 mg PO Q8H PRN (Reason: pain) Qty: 30 RF: 0 cefdinir 300 mg capsule 300 mg PO BID 7 Days Qty: 14 RF: 0 omeprazole 40 mg capsule,delayed release(DR/EC) 40 mg PO DAILY 28 Days Qty: 30 RF: 0 Continued citalopram 40 mg tablet 40 mg PO DAILY RF: 0 alprazolam 0.5 mg tablet 0.5 mg PO BID RF: 0 pregabalin 150 mg capsule 150 mg PO BID RF: 0 Nyquil See Rx Instructions .ROUTE .COMPLEX RF: 0 Discontinued famotidine 20 mg tablet 20 mg PO BID RF: 0 ibuprofen 200 mg Tablet 200 - 400 mg PO Q4H PRN (Reason: PAIN/FEVER) RF: 0 Discharge Orders: Discharge Order (Routine); Ordered 11/13/19 Ordered By: Ernie Otero Other Ambulatory Orders: Complete Blood Count w/Auto (Routine) Timeframe: 1 Week Location: Determined by Patient Ordered By: Ernie Otero C Reactive Protein (Routine) Timeframe: 1 Week Facility: [facility] - Location: Lab - Main Lab Ordered By: Ernie Otero Referrals: Riley Walker MD [Primary Care Provider] - 4-7 days Discharge Diet: Advance as tolerated Discharge Activity: Increase activity as tolerated Activity Restrictions/Additional Instructions: Please call your doctor or present to emergency department if your condition worsens or you develop diarrhea, lightheadedness, fatigue or see blood in your stool or black stool. Please not that if your breathing worsens please call your doctor or present to emergency department for further evaluation as COVID-19 may progress and it will be required for you to be closely monitored in the hospital settings. Please avoid NSAIDs including ibuprofen while you are taking dexamethasone as it may cause significant GI side effects. Attestations Medical Necessity Statement*: Patient with COVID-19 pneumonia deemed safe to be dismissed home with outpatient follow-up. 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
[2019-11-13] MEDS: famotidine 20 mg Tablet PO (09:43)
[2019-11-13] MEDS: dexamethasone 4 mg Tablet 6 MG PO (09:43)
[2019-11-13] MEDS: pantoprazole DR 40 mg Tablet PO (09:43)
[2019-11-13] MEDS: ALPRAZolam 0.5 mg Tablet PO (09:43)
[2019-11-13] MEDS: pregabalin 150 mg Capsule PO (09:43)
[2019-11-13] MEDS: citalopram 20 mg Tablet 40 MG PO (09:43)
--- NOTE | 2019-11-14 09:56 | PC.RESP ---
PATIENT DOES NOT HAVE A QUALIFYING HX OF LUNG DISEASE AND DOES NOT QUALIFY FOR PULMONARY REHAB AT THIS TIME.
--- NOTE | 2019-11-14 09:58 | PC.RESP ---
PATIENT DOES NOT HAVE A QUALIFYING HX OF LUNG DISEASE AND DOES NOT QUALIFY FOR PULMONARY REHAB AT THIS TIME.
--- NOTE | 2019-11-14 11:57 | PC.SOCIAL ---
HH nurse called and inquired about scripts. The patient did not receive physical scripts per her report at [facility]. She was with family and they request [facility]. Called in all 6 scripts verbally to BELLA at [facility]. No preferred pharmacy was entered in system. BELLA reread scripts back for verification.
== END 2019-11-13 11:15 | disposition home health service (06) ==
LOC: ER 19:25 → ICU 11-13 07:11
PROVIDERS: Admitting Provider Internal Medicine; Emergency Provider Emergency Medicine; PCP Family Medicine; Visit Provider Internal Medicine
DX: U07.1 COVID-19 (principal); J18.9 Pneumonia, unspecified organism; J96.11 Chronic respiratory failure with hypoxia; E66.01 Morbid (severe) obesity due to excess calories; Z68.43 Body mass index [BMI] 50.0-59.9, adult; F41.8 Other specified anxiety disorders; B37.2 Candidiasis of skin and nail; Z99.81 Dependence on supplemental oxygen
CPT/HCPCS: 12345; 36415; 71045; 80053; 82728; 83605; 84145; 85025; 85378; 85384; 85610; 86140; 87040; 87426; 87804; 96372; 96374; 96375; 99283; 99285; G0378; J1100; J1650; J8540

== ENCOUNTER → 2020-07-01 15:05 | Outpatient (BNVA) | payer MEDICARE, MEDICAID, SELFPAY | PROVIDERS: PCP Family Medicine; Visit Provider Family Medicine | DX: M79.642 Pain in left hand (principal); M25.532 Pain in left wrist; S60.229A Contusion of unspecified hand, initial encounter; S60.222A Contusion of left hand, initial encounter; W19.XXXA Unspecified fall, initial encounter | CPT/HCPCS: 73110; 73130 ==

== ENCOUNTER 2020-08-07 15:18 | Emergency (ER) | payer MEDICARE, MEDICAID, SELFPAY ==
[2020-08-07 15:23] VITALS: BP 158/61; PULSE 72; RESP 18; TEMP 36.7; O2SAT 97
--- NOTE | 2020-08-07 15:28 | W.ED.BACK ---
HPI - Back Pain/Injury General: Chief Complaint: Back Pain/Injury Stated Complaint: LOW BACK PAIN Time Seen by Provider: 08/07/20 15:28 History of Present Illness: HPI Narrative: 69-year-old female comes in today with lower back pain radiating down her left leg to her foot. Patient has a history of low back pain. Patient states 1 week ago she bent over to get her 's oxygen concentrator plugged then and felt sudden sharp pain down her left leg. Patient has been using acetaminophen for the last week with minimal relief. Patient comes in today due to persistent pain. Patient denies any problems with bowel or bladder. MD elicited complaint: back pain Pertinent past history: prior back pain Onset (ago): day(s) Timing: intermittent Severity: moderate Quality: burning Location: lumbar spine Radiation: left leg below the knee Exacerbating factors: walking Relieving factors: sitting upright Context: turning/twisting Associated symptoms: Reports tingling/numbness/burning Treatments prior to arrival: other medications (Acetaminophen) Work related injury: No Review of Systems General: Reports: 10 or more systems reviewed and unremarkable except in HPI and below Musc: Reports: back pain PFSH ED PFSH: Medical History Arthritis Chronic respiratory failure with hypoxia Depression with anxiety GERD (gastroesophageal reflux disease) Morbid obesity with BMI of 50.0-59.9, adult Surgical History H/O knee surgery Previous section Family History Father Alcoholism Mother Psychiatric illness Social History Smoking and tobacco status: never smoked Physical Exam Const: COMMON NORMALS: no acute distress and patient oriented x3 GENERAL APPEARANCE: cooperative HENMT: COMMON NORMALS: normocephalic and Normal external nose present HEAD & SCALP: normal to inspection and normocephalic NOSE: Normal external nose present MOUTH: Normal oral and palatal mucosa present Eye: GENERAL EYE: appearance normal, both eyes and all related structures Neck/C-Spine: COMMON NORMALS: full ROM Chest: COMMONS NORMALS: normal inspection of the chest Resp: COMMON NORMALS: normal respiratory effort EFFORT & INSPECTION: Yes able to speak in complete sentences Cardio: COMMON NORMALS: regular rate and regular rhythm RATE: regular rate RHYTHM: regular rhythm GI: COMMON NORMALS: non-tender : COMMON NORMALS: Yes no CVA tenderness BLADDER/KIDNEY EXAM: Yes no CVA tenderness Back/Pelvis: COMMON NORMALS: no CVA tenderness THORACIC SPINE/UPPER BACK: No thoracic spinal tenderness LUMBAR SPINE/LOWER BACK: Yes lumbar spinal tenderness Lumbar spinal tenderness location: L5, Yes paraspinal muscle tenderness Lumbar paraspinal muscle tenderness: left and Yes straight leg raise positive left PELVIS: Yes buttocks normal Extremity: COMMON NORMALS: normal to inspection Neuro: COMMON NORMALS: patient oriented x3 and moves all extremities Psych: COMMON NORMALS: mental status grossly normal and cooperative Skin: COMMON NORMALS: no rashes or lesions noted GENERAL SKIN EXAM: no rashes or lesions noted Course ED course: 1550, patient has some intertrigo to the apron folds of her abdomen and into her groin. Blood glucose was checked it was 96. We will treat patient's yeast infection with Diflucan and nystatin powder. Vital Signs: Vital signs: Vital Signs Temperature 98.0 F 08/07/20 15:23 Pulse Rate 72 08/07/20 15:23 Respiratory Rate 18 08/07/20 15:23 Blood Pressure 158/61 08/07/20 15:23 Pulse Oximetry 97 08/07/20 15:23 MDM - Back Pain/Injury MDM Narrative: Medical decision making narrative: Patient comes in today for persistent aggravating low back pain with radiation of pain down the left extremity. Patient is morbidly obese. Patient denies diabetes. Patient does use alprazolam, citalopram, and Lyrica as routine medications. Exam notes some lumbar paraspinous left side muscle tenderness, L5 area midline spinal tenderness, and positive leg lift test on the left. Patient denies any bowel or bladder incontinence. Differential diagnosis includes but not limited to fracture, intervertebral disc disease, facet arthropathy. CT scan showed significant degenerative disc disease without significant central foraminal stenosis. Reviewed exam with patient recommendations for further treatment and follow-up with primary care. Patient reports understanding and agreed to plan. Discharge Plan Discharge Patient Disposition: Home Clinical Impression: Lumbar radiculopathy, Degenerative disc disease, lumbar, Candidal intertrigo Condition: Stable Prescriptions: New tramadol 50 mg tablet 50 mg PO Q6H PRN (Reason: pain) Qty: 20 RF: 0 nystatin 100,000 unit/gram powder 1 applic topical DAILY Qty: 60 RF: 0 No Action citalopram 40 mg tablet 40 mg PO DAILY@699 RF: 0 alprazolam 0.5 mg tablet 0.5 mg PO BID@699,1999 RF: 0 pregabalin 150 mg capsule 150 mg PO BID@699,1999 RF: 0 acetaminophen 500 mg Tablet 500 - 1,000 mg PO Q6H PRN (Reason: Pain) RF: 0 famotidine 20 mg tablet 20 mg PO BID@699,1999 RF: 0 ProAir HFA 90 mcg/actuation HFA aerosol inhaler 1 - 2 puff INHALATION QID PRN (Reason: Wheezing) RF: 0 Discharge Orders: Discharge ED (Routine); Ordered 08/07/20 Ordered By: Dave Wilson Referrals: Riley Walker MD [Primary Care Provider] - Discharge Diet: Usual diet Discharge Activity: Increase activity as tolerated Patient Instructions: Back Pain (ED), Opioid Safety Activity Restrictions/Additional Instructions: Activity as tolerated. Use cane or walker for ambulation. Try to maintain activity near normal as much as possible. Follow-up with primary care in 3 to 5 days for recheck. Return to the emergency department for new concerns. 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
--- NOTE | 2020-08-07 15:37 | CTR_ITS ---
PROCEDURE INFORMATION: Exam: CT Lumbar Spine Without Contrast Exam date and time: 08/07/2020 3:42 PM Age: 69 years old Clinical indication: Low back pain; Patient HX: C/O lbp w lle radiculopathy after bending; Additional info: Lumbar radiculopathy left side TECHNIQUE: Imaging protocol: Computed tomography images of the lumbar spine without contrast. Radiation optimization: All CT scans at this facility use at least one of these dose optimization techniques: automated exposure control; mA and/or kV adjustment per patient size (includes targeted exams where dose is matched to clinical indication); or iterative reconstruction. COMPARISON: CR XR lumbar spine 2-3V* [id number] 04/21/2020 11:14 AM RADIATION DOSE METRICS: Total DLP (mGy-cm): 2251.28 FINDINGS: Vertebrae: Minimal lateral curvature of the lumbar spine with the convexity to the left. This may be positional in nature. Mild grade 1 retrolisthesis of L2 on L3. There are degenerative changes throughout the visualized spine including marginal osteophyte formations, endplate degenerative changes, and facet arthropathy. L1-L2: No significant disc protrusion. No severe spinal canal stenosis. No significant neural foraminal narrowing. L2-L3: There is a minimal bulge and small posterior osteophytes. There is mild to moderate narrowing of the right neural foramen. L3-L4: There are small posterior osteophytes and moderate facet arthropathy. [id number] narrowing of the right neural foramen and moderate narrowing of the left neural foramen. L4-L5: There is a minimal disc bulge and severe facet arthropathy. Mild narrowing of the right neural foramen. L5-S1: Mild grade 1 degenerative anterolisthesis of L5 on S1. Canal and neural foramina are within normal limits in caliber. Soft tissues: Unremarkable. L5-S1: No significant disc protrusion. No severe spinal canal stenosis. No significant neural foraminal narrowing. Soft tissues: Unremarkable. Other findings: Multilevel disc space narrowing. There is vacuum disc phenomenon at the L2-L3 level. CT/CT lumbar spine wo con* [id number] IMPRESSION: There are degenerative changes as described above. No evidence for acute fracture. Radiation Dose CTDIVOL = (mGy): DLP = 2251.28 (mGy-cm)
[2020-08-07] MEDS: ketorolac 30 mg/mL INJ 15 MG IVP (15:57)
[2020-08-07] MEDS: dexamethasone 10 mg/mL INJ IVP (15:58)
[2020-08-07] MEDS: orphenadrine 30 mg/mL Inj 2 mL 60 MG IVP (16:00)
[2020-08-07] MEDS: TRAMadol 50 mg Tablet PO (16:11)
[2020-08-07] MEDS: fluconazole 100 mg Tablet 150 MG PO (16:11)
[2020-08-07 16:26] VITALS: RESP 18
[2020-08-07 16:55] VITALS: RESP 18
[2020-08-07 23:46] LABS: Glucose Point of Care 93 mg/dL (70-110)
== END 2020-08-07 16:56 | disposition home or self-care (01) ==
PROVIDERS: Emergency Provider Nurse Practitioner Family; PCP Family Medicine
DX: M51.16 Intervertebral disc disorders with radiculopathy, lumbar region (principal); L30.4 Erythema intertrigo
CPT/HCPCS: 36416; 72131; 82962; 96374; 96375; 99284; J1100; J1885; J2360

== ENCOUNTER 2020-08-15 23:55 | Emergency (ER) | payer MEDICARE, MEDICAID, SELFPAY ==
[2020-08-15 23:58] VITALS: BP 165/87; PULSE 68; RESP 14; TEMP 36.6; O2SAT 94; BMI 49.8
--- NOTE | 2020-08-16 00:29 | XRR_ITS ---
PROCEDURE INFORMATION: Exam: XR Lumbosacral Spine Exam date and time: 08/16/2020 12:32 AM Age: 69 years old Clinical indication: Pain; Sciatica; Additional info: Back pain TECHNIQUE: Imaging protocol: XR of the lumbosacral spine. Views: 2 or 3 views. COMPARISON: CT lumbar spine wo con* [id number] 08/07/2020 3:48 PM FINDINGS: Bones/joints: Spinal alignment is normal. Vertebral body height is maintained. There is moderate lumbar degenerative disc disease. There is moderate multilevel facet spondylosis. There is no acute fracture. The visible portion of the pelvis and sacrum is intact. Soft tissues: Visible soft tissues are unremarkable. XR/XR lumbar spine 2-3V* [id number] IMPRESSION: 1. No acute findings. 2. Diffuse lumbar degenerative disc and facet disease.
[2020-08-16] MEDS: ketorolac 30 mg/mL INJ IVP (01:08)
[2020-08-16] MEDS: dexamethasone 4 mg/mL INJ 8 MG IVP (01:30)
[2020-08-16 01:35] VITALS: BP 150/77; PULSE 67; RESP 18; O2SAT 96
--- NOTE | 2020-08-16 06:56 | W.ED.BACK ---
HPI - Back Pain/Injury General: Chief Complaint: Back Pain/Injury Stated Complaint: lower back pain Time Seen by Provider: 08/15/20 23:56 History of Present Illness: HPI Narrative: 69-year-old female with around 2 weeks of back pain that radiates down her left lower extremity. She states that she bent forward while sitting on the bed at that time, experienced immediate pain had that pain in the past some. She has pain with weightbearing more than with sitting or lying down. She notes excruciating pain today that it worsened, so she presents the emergency department. She notes that she has some numbness to her left anterior kwon, but not to her genitals or saddle area. She has not lost control of her bladder or bowel function. MD elicited complaint: back pain Pertinent past history: prior back pain Onset (ago): day(s) Timing: constant and progressively worsening Severity: moderate Similar Symptoms Previously: Yes Quality: burning and sharp Location: lumbar spine Radiation: left leg below the knee Exacerbating factors: walking, coughing/sneezing and lifting Associated symptoms: Reports numbness; Deny abdominal pain, chills, dysuria, fecal incontinence, fever(s), hematuria or urinary frequency Treatments prior to arrival: cold therapy, heat therapy and acetaminophen Review of Systems Const: Denies: fever(s) or chills Card: Denies: chest pain Resp: Denies: dyspnea GI: Denies: abdominal pain or fecal incontinence : Denies: dysuria or hematuria [facility] ED PFSH: Medical History Arthritis Chronic respiratory failure with hypoxia Depression with anxiety GERD (gastroesophageal reflux disease) Morbid obesity with BMI of 50.0-59.9, adult Surgical History H/O knee surgery Previous section Family History Father Alcoholism Mother Psychiatric illness Social History Smoking and tobacco status: never smoked Physical Exam Const: COMMON NORMALS: no acute distress, patient oriented x3 and alert ORIENTATION/CONSCIOUSNESS: Yes oriented to person and Yes oriented to place Chest: COMMONS NORMALS: normal inspection of the chest Resp: COMMON NORMALS: normal respiratory effort, No use of accessory muscles and clear to auscultation bilaterally AUSCULTATION: clear to auscultation bilaterally Cardio: COMMON NORMALS: regular rate and regular rhythm RATE: regular rate RHYTHM: regular rhythm GI: COMMON NORMALS: Normal to inspection, nondistended, normoactive bowel sounds present and Soft to palpation PALPATION: Yes Soft to palpation Back/Pelvis: OTHER: Exam the lumbar spine reveals some tenderness over the left SI joint, and L5-S1 areas. There is mild paravertebral spasm. There is a positive straight leg raise test on the left but not on the right. Capillary refill normal, sensation is grossly intact to touch Neuro: COMMON NORMALS: patient oriented x3 SENSORIUM/ORIENTATION: Yes alert, Yes oriented to person and Yes oriented to place GAIT: Yes Steppage gait present SENSORY EXAM: No sensory level loss detected MOTOR EXAM: 5/5 motor strength present throughout and Normal motor muscle tone present throughout Course Vital Signs: Vital signs: Vital Signs Temperature 97.9 F 08/15/20 23:58 Pulse Rate 67 08/16/20 01:35 Respiratory Rate 18 08/16/20 01:35 Blood Pressure 150/77 08/16/20 01:35 Pulse Oximetry 96 08/16/20 01:35 MDM - Back Pain/Injury MDM Narrative: Medical decision making narrative: 69-year-old female with sciatic radicular back pain on the left. She has no red flags on exam. She does have a straight leg raise test that is positive on the left. She will be placed on a steroid pack, pain control with mild narcotics. Primary care follow-up. She may need referral to pain management for epidural injection at their discretion Discharge Plan Discharge Patient Disposition: Home Clinical Impression: Lumbar radiculopathy Condition: Stable Prescriptions: New hydrocodone-acetaminophen 5-325 mg tablet 1 tab PO Q8H PRN (Reason: pain) Qty: 10 RF: 0 Medrol (Car) 4 mg tablets,dose pack See Rx Instructions .ROUTE .COMPLEX Qty: 21 RF: 0 No Action citalopram 40 mg tablet 40 mg PO DAILY@0700 RF: 0 alprazolam 0.5 mg tablet 0.5 mg PO BID@07,1999 RF: 0 pregabalin 150 mg capsule 150 mg PO BID@699,1999 RF: 0 acetaminophen 500 mg Tablet 500 - 1,000 mg PO Q6H PRN (Reason: Pain) RF: 0 famotidine 20 mg tablet 20 mg PO BID@0700,2000 RF: 0 ProAir HFA 90 mcg/actuation HFA aerosol inhaler 1 - 2 puff INHALATION QID PRN (Reason: Wheezing) RF: 0 tramadol 50 mg tablet 50 mg PO Q6H PRN (Reason: pain) Qty: 20 RF: 0 nystatin 100,000 unit/gram powder 1 applic topical DAILY Qty: 60 RF: 0 Discharge Orders: Discharge ED (Routine); Ordered 08/16/20 Ordered By: Jaycob Castano Referrals: Riley Walker MD [Primary Care Provider] - 4-7 days Discharge Diet: Usual diet Discharge Activity: Increase activity as tolerated Patient Instructions: Lumbar Radiculopathy (ED) Activity Restrictions/Additional Instructions: Return for fever greater than 100, loss of sensation to your genital or rectal area, loss of control of your bowel or bladder function, significant weakness, other concerning symptoms. Follow-up with your doctor this coming week. Medications as directed. 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
== END 2020-08-16 01:40 | disposition home or self-care (01) ==
PROVIDERS: Emergency Provider Emergency Medicine; PCP Family Medicine
DX: M54.16 Radiculopathy, lumbar region (principal)
CPT/HCPCS: 72100; 96374; 96375; 99283; J1100; J1885

== ENCOUNTER 2020-08-28 23:07 | Emergency (ER) | payer MEDICARE, MEDICAID, SELFPAY ==
[2020-08-28 23:11] VITALS: BP 181/70; PULSE 75; RESP 24; TEMP 36.4; O2SAT 94; BMI 48.4
--- NOTE | 2020-08-28 23:24 | XRR_ITS ---
PROCEDURE INFORMATION: Exam: XR Lumbosacral Spine Exam date and time: 08/28/2020 11:24 PM Age: 69 years old Clinical indication: Pain; Sciatica; Left; Additional info: Back pain TECHNIQUE: Imaging protocol: XR of the lumbosacral spine. Views: 2 or 3 views. COMPARISON: CR (PELVIS, ) 08/16/2020 12:36 AM FINDINGS: Bones/joints: There is a 6.7 mm anterior spondylolisthesis of L5 on S1 likely secondary to diffuse degenerative disc disease. Soft tissues: Unremarkable. Other findings: There is diffuse demineralization. XR/XR lumbar spine 2-3V* [id number] IMPRESSION: There are no acute osseous findings.
[2020-08-28 23:45] VITALS: RESP 18
[2020-08-28] MEDS: HYDROmorphone 1 mg/mL INJ 1 mL IVP (23:45)
--- NOTE | 2020-08-28 23:47 | W.ED.BACK ---
HPI - Back Pain/Injury General: Chief Complaint: Back Pain/Injury Stated Complaint: SCIATIC NERVE PAIN Time Seen by Provider: 08/28/20 23:20 Source: patient Mode of arrival: ambulatory Limitations: no limitations History of Present Illness: HPI Narrative: 69-year-old female who has a history of chronic back pain who is here by EMS with worsening back pain. She states she has got pain in the left lower back and it radiates down her thigh. States it feels like sciatica in her past. She denies any recent injuries. Denies any bowel or bladder incontinence. Denies any decrease sensation. Associated symptoms: Deny abdominal pain, chills, dysuria, fever(s), nausea or vomiting Review of Systems Const: Denies: fever(s), chills, body aches or change in appetite Eyes: Denies: blurry vision or eye discomfort ENMT: Denies: throat pain or dental pain Card: Denies: chest pain Resp: Denies: dyspnea GI: Denies: abdominal pain, nausea, vomiting or diarrhea : Denies: dysuria Musc: Reports: back pain; Denies: neck pain Skin/Breast: Denies: rash Neuro: Denies: headache(s) Psych: Denies: depression Danny/Lymph: Denies: easy bruising All/Imm: Denies: urticaria PFSH ED PFSH: Medical History Arthritis Chronic respiratory failure with hypoxia Depression with anxiety GERD (gastroesophageal reflux disease) Morbid obesity with BMI of 50.0-59.9, adult Surgical History H/O knee surgery Previous section Family History Father Alcoholism Mother Psychiatric illness Social History Smoking and tobacco status: never smoked Physical Exam Const: COMMON NORMALS: no acute distress, patient oriented x3 and healthy appearing HENMT: COMMON NORMALS: normocephalic and atraumatic HEAD & SCALP: normocephalic and atraumatic Eye: COMMON NORMALS: Equal, round and reactive pupils present and EOMs intact bilaterally PUPIL: Yes Equal, round and reactive pupils present Neck/C-Spine: COMMON NORMALS: full ROM and supple Chest: COMMONS NORMALS: normal inspection of the chest and normal palpation of entire chest wall Resp: COMMON NORMALS: normal respiratory effort, No retractions, No use of accessory muscles and clear to auscultation bilaterally AUSCULTATION: clear to auscultation bilaterally Cardio: COMMON NORMALS: regular rate, regular rhythm and No murmurs present (Cardio) RATE: regular rate RHYTHM: regular rhythm GI: COMMON NORMALS: Normal to inspection, nondistended, normoactive bowel sounds present, Soft to palpation, non-tender and no masses PALPATION: Yes Soft to palpation Back/Pelvis: OTHER: Tenderness to left lower back no midline tenderness sensations intact with no saddle anesthesia Extremity: COMMON NORMALS: normal to inspection and full ROM Neuro: COMMON NORMALS: patient oriented x3, moves all extremities and no focal motor deficits Psych: COMMON NORMALS: mental status grossly normal, Normal thought process present and cooperative THOUGHT PROCESS: Normal thought process present Skin: COMMON NORMALS: no rashes or lesions noted and no wounds GENERAL SKIN EXAM: no rashes or lesions noted Course Vital Signs: Vital signs: Vital Signs Temperature 97.6 F 08/28/20 23:11 Pulse Rate 69 08/29/20 00:34 Respiratory Rate 18 08/29/20 00:34 Blood Pressure 106/51 08/29/20 00:34 Pulse Oximetry 94 08/29/20 00:34 MDM - Back Pain/Injury MDM Narrative: Medical decision making narrative: Patient presents with low back pain is likely muscular in nature. She is point tender over left lower back. The give her IV pain meds Decadron she feels much improved here. She is able ambulate here without any difficulty. We will place her on pain meds along with muscle relaxants she is to ice her back. She is to follow-up with her PCP and return if worsening. Discharge Plan Discharge Patient Disposition: Home Clinical Impression: Low back pain Qualifiers: Chronicity: acute Back pain laterality: left Sciatica presence: with sciatica Sciatica laterality: sciatica of right side Qualified Code(s): M54.41 - Lumbago with sciatica, right side Condition: Stable Prescriptions: New hydrocodone-acetaminophen 5-325 mg tablet 1 tab PO Q6H PRN (Reason: pain) Qty: 14 RF: 0 Robaxin-750 750 mg tablet 750 mg PO Q6H Qty: 30 RF: 0 No Action citalopram 40 mg tablet 40 mg PO DAILY@0700 RF: 0 alprazolam 0.5 mg tablet 0.5 mg PO BID@699,1999 RF: 0 pregabalin 150 mg capsule 150 mg PO BID@699,1999 RF: 0 acetaminophen 500 mg Tablet 500 - 1,000 mg PO Q6H PRN (Reason: Pain) RF: 0 famotidine 20 mg tablet 20 mg PO BID@699,1999 RF: 0 ProAir HFA 90 mcg/actuation HFA aerosol inhaler 1 - 2 puff INHALATION QID PRN (Reason: Wheezing) RF: 0 tramadol 50 mg tablet 50 mg PO Q6H PRN (Reason: pain) Qty: 20 RF: 0 nystatin 100,000 unit/gram powder 1 applic topical DAILY Qty: 60 RF: 0 hydrocodone-acetaminophen 5-325 mg tablet 1 tab PO Q8H PRN (Reason: pain) Qty: 10 RF: 0 Medrol (Car) 4 mg tablets,dose pack See Rx Instructions .ROUTE .COMPLEX Qty: 21 RF: 0 Discharge Orders: Discharge ED (Routine); Ordered 08/29/20 Ordered By: Evin Kuhn Referrals: Riley Walker MD [Primary Care Provider] - Discharge Diet: Advance as tolerated Discharge Activity: Resume usual activity Patient Instructions: Acute Low Back Pain (ED), Opioid Safety Coding Level of Care Code ED Staffing Specialist for [facility] F[facility] Exam Comprehensive
[2020-08-28] MEDS: dexamethasone 10 mg/mL INJ IVP (23:50)
[2020-08-29 00:34] VITALS: BP 106/51; PULSE 69; RESP 18; O2SAT 94
== END 2020-08-29 00:36 | disposition home or self-care (01) ==
PROVIDERS: Emergency Provider Emergency Medicine; PCP Family Medicine
DX: M54.41 Lumbago with sciatica, right side (principal)
CPT/HCPCS: 72100; 96374; 96375; 99283; J1100; J1170

== ENCOUNTER 2020-09-01 13:25 | Emergency (ER) | payer MEDICARE, MEDICAID, SELFPAY ==
[2020-09-01 13:32] VITALS: PULSE 77; RESP 14; TEMP 36.7; O2SAT 92; BMI 48.9
--- NOTE | 2020-09-01 13:53 | W.ED.EXTPRO ---
HPI - Extremity Problem General: Chief complaint: Extremity Problem,Nontraumatic Stated complaint: LOW BACK PAIN, KNEE PAIN Time Seen by Provider: 09/01/20 13:32 History of Present Illness: HPI Narrative: Patient is a 69-year-old female comes to the ED via EMS with low back pain. Patient received 1 mg of Dilaudid IM while in route to the ED. Patient has been seen here in the ED three times for same low back pain complaint starting August 07. Patient denies any falls or injuries cause any worsening symptoms. She rates her pain an 8 out of 10 and says the pain radiates down the left leg. She states that today she did take a hydrocodone and a muscle relaxer before coming to the ED. Denies any cauda equina symptoms. Associated symptoms: Deny chest pain, fever(s) or rash Review of Systems Const: Denies: fever(s), chills or fatigue Eyes: Denies: change in vision or eye discomfort ENMT: Denies: throat pain, odynophagia, nasal discharge or nasal congestion Card: Denies: chest pain, palpitations, edema, swelling of feet/ankles, dyspnea on exertion or orthopnea Resp: Denies: dyspnea, productive cough or non-productive cough GI: Denies: abdominal pain, nausea, vomiting, diarrhea, constipation or hematochezia : Denies: flank pain, dysuria or hematuria Musc: Reports: back pain; Denies: neck pain or extremity swelling Skin/Breast: Denies: rash or new lesions Neuro: Denies: headache(s), numbness in extremities or weakness in extremities [facility] ED PFSH: Medical History Arthritis Chronic respiratory failure with hypoxia Depression with anxiety GERD (gastroesophageal reflux disease) Morbid obesity with BMI of 50.0-59.9, adult Surgical History H/O knee surgery Previous section Family History Father Alcoholism Mother Psychiatric illness Social History Smoking and tobacco status: never smoked Physical Exam Const: COMMON NORMALS: no acute distress, patient oriented x3 and alert GENERAL APPEARANCE: cooperative and comfortable HENMT: COMMON NORMALS: normocephalic HEAD & SCALP: normocephalic MOUTH: Normal oral and palatal mucosa present THROAT: posterior oropharynx normal and uvula midline Neck/C-Spine: COMMON NORMALS: supple GENERAL: Yes normal visual inspection Resp: COMMON NORMALS: normal respiratory effort, No retractions, No use of accessory muscles and clear to auscultation bilaterally AUSCULTATION: clear to auscultation bilaterally Cardio: COMMON NORMALS: regular rate, regular rhythm, S1 normal heart sound present, S2 normal heart sound present, No gallops present (Cardio), No clicks present (Cardio), No murmurs present (Cardio) and Peripheral pulses 2+ throughout RATE: regular rate RHYTHM: regular rhythm HEART SOUNDS: S1 normal heart sound present and S2 normal heart sound present PERIPHERAL PULSES: Peripheral pulses 2+ throughout GI: COMMON NORMALS: Normal to inspection, nondistended, normoactive bowel sounds present, Soft to palpation, non-tender and no masses PALPATION: Yes Soft to palpation : COMMON NORMALS: Yes no CVA tenderness BLADDER/KIDNEY EXAM: Yes no CVA tenderness Back/Pelvis: COMMON NORMALS: no CVA tenderness LUMBAR SPINE/LOWER BACK: Yes pain with ROM, No lumbar spinal tenderness and Yes paraspinal muscle tenderness Lumbar paraspinal muscle tenderness: bilateral Bilateral lumbar paraspinal muscle tenderness: L4 and L5 Extremity: COMMON NORMALS: normal to inspection Neuro: COMMON NORMALS: patient oriented x3 and moves all extremities SENSORIUM/ORIENTATION: Yes alert Skin: GENERAL SKIN EXAM: dry skin Course ED course: I asked if patient would like to be referred to orthospine doctor to evaluate her lower back pain. Patient says she does not want to be referred to orthospine surgeon. Vital Signs: Vital signs: Vital Signs Temperature 98.0 F 09/01/20 14:49 Pulse Rate 73 09/01/20 14:49 Respiratory Rate 20 H 09/01/20 14:49 Blood Pressure 160/84 09/01/20 14:49 Pulse Oximetry 93 09/01/20 14:49 MDM - Extremity (Nontraumatic) MDM Narrative: Medical decision making narrative: Patient is 63-year-old female comes the ED with lower back pain with pain radiating down left leg. Patient denies any acute injury or trauma to cause pain and has been dealing with this pain for a while and has been in the ED 3 times now for lower back pain over the past month. Denies any cauda equina symptoms. I discussed the referral to orthospine doctor and patient refused. Patient was diagnosed lumbar radiculopathy and given a shot of Toradol and steroid while here in the ED. She was then discharged home with Medrol Dosepak. Patient says she already has some muscle relaxers she can take at home as needed. Follow-up with PCP in 7 to 10 days reevaluation. Return to ED precautions given. Patient stood agree with plan. Discharge Plan Discharge Patient Disposition: Home Clinical Impression: Lumbar radiculopathy Condition: Stable Prescriptions: New methylprednisolone 4 mg tablets,dose pack See Rx Instructions .ROUTE .COMPLEX Qty: 21 RF: 0 No Action hydrocodone-acetaminophen 5-325 mg tablet 1 tab PO Q6H PRN (Reason: pain) Qty: 14 RF: 0 Robaxin-750 750 mg tablet 750 mg PO Q6H Qty: 30 RF: 0 citalopram 40 mg tablet 40 mg PO DAILY@0700 RF: 0 alprazolam 0.5 mg tablet 0.5 mg PO BID@699,1999 RF: 0 pregabalin 150 mg capsule 150 mg PO BID@699,1999 RF: 0 acetaminophen 500 mg Tablet 500 - 1,000 mg PO Q6H PRN (Reason: Pain) RF: 0 famotidine 20 mg tablet 20 mg PO BID@699,1999 RF: 0 ProAir HFA 90 mcg/actuation HFA aerosol inhaler 1 - 2 puff INHALATION QID PRN (Reason: Wheezing) RF: 0 tramadol 50 mg tablet 50 mg PO Q6H PRN (Reason: pain) Qty: 20 RF: 0 nystatin 100,000 unit/gram powder 1 applic topical DAILY Qty: 60 RF: 0 hydrocodone-acetaminophen 5-325 mg tablet 1 tab PO Q8H PRN (Reason: pain) Qty: 10 RF: 0 Medrol (Car) 4 mg tablets,dose pack See Rx Instructions .ROUTE .COMPLEX Qty: 21 RF: 0 Discharge Orders: Discharge ED (Routine); Ordered 09/01/20 Ordered By: Guy Vázquez Referrals: Riley Walker MD [Primary Care Provider] - Discharge Diet: Regular Discharge Activity: Increase activity as tolerated Patient Instructions: Lumbar Radiculopathy (ED) Activity Restrictions/Additional Instructions: Follow-up with medical provider as directed in 7 to 10 days for reevaluation. Start taking Medrol Dosepak tomorrow. Take medications as prescribed. You can also take [id number] Tylenol or ibuprofen for any pain. Apply cold pack on back to help with symptoms and try to stretch lower back daily. Return to the ER or your medical provider if condition worsens. Please read and understand discharge instructions. Thank you for choosing [facility] for your healthcare needs today. Please realize this is an emergency room and that we are providing you with a medical screening exam and this may not be complete and all inclusive of all the testing and or work up that you may need to determine your ailment or severity of your illness. It is very important that you follow up as instructed or that you return to the Emergency Department should you have concerns or if your condition changes or worsens in any way. Coding Level of Care Code ED Branch General Manager for [facility] Alexander
[2020-09-01 14:00] VITALS: BP 187/90; PULSE 74; O2SAT 91
[2020-09-01] MEDS: dexamethasone 10 mg/mL INJ IM (14:20)
[2020-09-01] MEDS: ketorolac 60 mg/2 mL INJ IM (14:21)
[2020-09-01 14:49] VITALS: BP 160/84; PULSE 73; RESP 20; TEMP 36.7; O2SAT 93
== END 2020-09-01 14:40 | disposition home or self-care (01) ==
PROVIDERS: Emergency Provider Physician Assistant; PCP Family Medicine
DX: M54.16 Radiculopathy, lumbar region (principal)
CPT/HCPCS: 96372; 99283; J1100; J1885

== ENCOUNTER 2021-04-14 21:43 | Emergency (ER) | payer MEDICARE, MEDICAID, SELFPAY ==
[2021-04-14 21:45] VITALS: BP 137/67; PULSE 89; RESP 18; TEMP 36.9; O2SAT 88; BMI 48.9
--- NOTE | 2021-04-14 21:54 | XRR_ITS ---
PROCEDURE INFORMATION: Exam: XR Chest Exam date and time: 04/14/2021 9:54 PM Age: 70 years old Clinical indication: Cough and shortness of breath; Patient HX: C/O cough and SOB TECHNIQUE: Imaging protocol: XR of the chest. Views: 1 view. COMPARISON: CR XR chest 2V* [id number] 12/03/2019 10:54 AM FINDINGS: Lungs: Diffuse interstitial and alveolar opacities in both lungs have resolved. Lungs are clear bilaterally. Pleural spaces: No pleural effusion. No pneumothorax. Heart/Mediastinum: Stable mild enlargement of the cardiac silhouette. Mediastinal contours are unremarkable. Bones/joints: Unremarkable for age. XR/XR chest 1V portable [id number] IMPRESSION: 1. No acute cardiopulmonary process. 2. Incidental/nonacute findings are listed in the report.
--- NOTE | 2021-04-14 21:57 | ECG_ITS ---
[facility] Test Date: 2021-04-14 Pat Name: Miguel A Pollard Department: Room: Gender: Female Private Duty Aide: : 1950 Requested By: Alexsander Ruiz Order Number: [id number] Saleem MD: Tamie Blankenship M.D. Measurements Intervals [place] Rate: 87 P: 20 [place]: 124 QRS: 35 QRSD: 90 T: 12 QT: 300 QTc: 363 Interpretive Statements SINUS RHYTHM NONSPECIFIC T-WAVE ABNORMALITY Compared to ECG 05/21/2019 16:58:19 T-wave abnormality now present Electronically Signed On 04-14-2021 22:34:17 SCHEDULE ANALYST by Tamie Blankenship M.D. [id number]
--- NOTE | 2021-04-14 21:59 | ED_ITS ---
Documented by User: Alexsander Ruiz DO 04/14/21 22:49 HPI - General Adult General: Chief complaint: Nausea/Vomiting/Diarrhea Stated complaint: nausea/fatigue Time Seen by Provider: 04/14/21 21:52 Source: patient Mode of arrival: EMS Limitations: no limitations History of Present Illness: This patient presents to our emergency department via EMS. She states over the past 3 to 4 days she has had nausea and a cough. She states that she feels general malaise and not well. She does not have a history of any documented fevers. She states she lives with her who has not been ill currently. She has no history of cardiopulmonary disease. She has a history of restless leg syndrome as well as anxiety. No tobacco history. No known exposure to COVID-19 but is unimmunized against COVID-19. She states that she has been eating and drinking relatively normally. No documented fevers. Associated symptoms: Reports cough, malaise and nausea; Deny chest pain, headache(s), rash, palpitations or vomiting Review of Systems Const: Reports: malaise; Denies: fever(s) or chills Eyes: Denies: change in vision or blurry vision ENMT: Denies: throat pain, odynophagia, hoarseness or nasal discharge Card: Denies: chest pain, palpitations, irregular heart rhythm or edema Resp: Reports: non-productive cough GI: Reports: nausea; Denies: abdominal pain or vomiting : Denies: flank pain, difficulty voiding, dysuria or urinary frequency Musc: Denies: neck pain, back pain, extremity pain or extremity swelling Skin/Breast: Denies: rash, pruritus or erythema Neuro: Denies: headache(s), numbness in extremities or weakness in extremities Psych: Reports: anxiety and depression Endo: Denies: polyuria or polydipsia Danny/Lymph: Denies: easy bruising PFSH ED PFSH: Medical History (Updated 04/14/21 @ 23:35 by Evin Kuhn MD) Arthritis Chronic respiratory failure with hypoxia COVID-19 Depression with anxiety GERD (gastroesophageal reflux disease) Morbid obesity with BMI of 50.0-59.9, adult Surgical History H/O knee surgery Previous section Family History Father Alcoholism Mother Psychiatric illness Social History Smoking and tobacco status: never smoked Physical Exam Narrative: EXAM NARRATIVE: Patient does not appear in any acute distress. She talks in complete sentences without dyspnea. Const: COMMON NORMALS: no acute distress HENMT: COMMON NORMALS: normocephalic, moist oral mucous membranes and oropharynx normal HEAD & SCALP: normocephalic FACE & SINUS: normal facial exam; no sinus tenderness Eye: COMMON NORMALS: Equal, round and reactive pupils present and EOMs intact bilaterally PUPIL: Yes Equal, round and reactive pupils present Neck/C-Spine: COMMON NORMALS: full ROM, no lymphadenopathy and no JVD Lymph: LYMPHATIC: no lymphadenopathy noted Chest: COMMONS NORMALS: normal inspection of the chest Resp: COMMON NORMALS: No retractions and No use of accessory muscles AUSCULTATION: no crackles, no rales, no rhonchi, no wheezes and diminished lung sounds on the right in the lower lung [place] and on the left Cardio: COMMON NORMALS: no JVD, regular rate, regular rhythm and Peripheral pulses 2+ throughout RATE: regular rate RHYTHM: regular rhythm PERIPHERAL PULSES: Peripheral pulses 2+ throughout GI: COMMON NORMALS: Normal to inspection, nondistended, normoactive bowel sounds present, Soft to palpation and non-tender PALPATION: Yes Soft to palpation Extremity: COMMON NORMALS: normal to inspection, full ROM, no clubbing, cyanos is or edema, no calf tenderness and no pedal edema Neuro: COMMON NORMALS: moves all extremities, no focal motor deficits and no sensory deficits noted CRANIAL NERVES: Yes CN normal except as noted Psych: COMMON NORMALS: mental status grossly normal Skin: COMMON NORMALS: no rashes or lesions noted and turgor normal GENERAL SKIN EXAM: no rashes or lesions noted and turgor normal Course Reevaluation(s): Reevaluation #1: Patient's initial O2 saturation was 88% on room air. This was with a good waveform. She was placed on 2 L nasal cannula and she quickly improved to the 95 to 97% range with a good waveform. Initial intake obtained from the patient stated she had no history of breathing problems to include sleep apnea etc. however review of her chart reveals that she has a history of respiratory issues as well as has been prescribed metered-dose inhalers in the past. Reevaluation #2: Patient is being signed out to Dr. Kuhn for disposition with labs pending. Vital Signs: Vital signs: Vital Signs Temperature 98.4 F 04/14/21 21:45 Pulse Rate 89 04/14/21 21:45 Respiratory Rate 18 04/14/21 21:45 Blood Pressure 137/67 04/14/21 21:45 Pulse Oximetry 88 L 04/14/21 21:45 MDM - General Adult Medical Decision Making Pending work up for dispo Lab Data : 04/14/21 22:15 04/14/21 22:15 Radiology Impressions Chest X-Ray 04/14/21 21:54 IMPRESSION: 1. No acute cardiopulmonary process. 2. Incidental/nonacute findings are listed in the report. Laboratory Results WBC 13.7 10^3/uL (4.0-10.0) H 04/14/21 22:15 RBC 5.12 10^6/uL (4.1-5.3) 04/14/21 22:15 Hgb 11.8 g/dL (11.5-15.3) 04/14/21 22:15 Hct 38.5 % (37.0-47.0) 04/14/21 22:15 MCV 75.2 fl (81-99) L 04/14/21 22:15 MCH 23.0 pg (28.0-34.0) L 04/14/21 22:15 MCHC 30.6 g/dL (30.0-36.0) 04/14/21 22:15 RDW 20.9 % (12.1-15.1) H 04/14/21 22:15 Plt Count 380 10^3/cmm (130-400) 04/14/21 22:15 MPV 9.7 fL (7.4-10.4) 04/14/21 22:15 Neut % (Auto) 93.4 % 04/14/21 22:15 Lymph % (Auto) 2.0 % 04/14/21 22:15 [place] % (Auto) 3.5 % 04/14/21 22:15 Eos % (Auto) 0.1 % 04/14/21 22:15 Baso % (Auto) 0.3 % 04/14/21 22:15 Neut # (Auto) 12.82 10^3/uL (1.8-7.7) H 04/14/21 22:15 Lymph # (Auto) 0.3 10^3/uL (0.8-4.8) L 04/14/21 22:15 [place] # (Auto) 0.5 10^3/uL (0.2-0.9) 04/14/21 22:15 Eos # (Auto) 0.0 10^3/uL (0.0-0.8) 04/14/21 22:15 Baso # (Auto) 0.0 10^3/uL (0.0-0.1) 04/14/21 22:15 Nucleated RBC % (auto) 0 % 04/14/21 22:15 Nucleated RBCs # 0.0 /100WBC 04/14/21 22:15 Sodium 135 mmol/L (136-145) L 04/14/21 22:15 Potassium 4.3 mmol/L (3.5-5.1) 04/14/21 22:15 Chloride 98 mmol/L (98-107) 04/14/21 22:15 Carbon Dioxide 24 mmol/L (22-29) 04/14/21 22:15 Anion Gap 17.3 (5-19) 04/14/21 22:15 BUN 11 mg/dL (8-23) 04/14/21 22:15 Creatinine 0.6 mg/dL (0.5-0.9) 04/14/21 22:15 GFR Calculation 99.4 mL/min (90-130) 04/14/21 22:15 Glucose 113 mg/dL (65-115) 04/14/21 22:15 Calculated Osmolality 280 mOsm/kg (285-295) L 04/14/21 22:15 Calcium 9.0 mg/dL (8.5-10.5) 04/14/21 22:15 Total Bilirubin 0.3 mg/dL (0.15-1.2) 04/14/21 22:15 AST 18 U/L (0-32) 04/14/21 22:15 ALT 10 U/L (0-33) 04/14/21 22:15 Alkaline Phosphatase 142 IU/L (35-105) H 04/14/21 22:15 Troponin T Gen 5 ng/L 10 ng/L (0-10) 04/14/21 22:15 NT-Pro-B Natriuret Pep 549 pg/mL (0-125) H 04/14/21 22:15 Total Protein 6.7 g/dL (6.6-8.7) 04/14/21 22:15 Albumin 3.6 g/dL (3.5-5.2) 04/14/21 22:15 Globulin 3.1 g/dL (1.3-4.6) 04/14/21 22:15 SARS-CoV-2 Ag (Rapid) Positive (Negative) H 04/14/21 22:11 EKG Data EKG 1: I personally reviewed and interpreted this EKG as follows: Interpretation: EKG obtained at 2231 reveals ventricular rate of 87 bpm. She has some baseline irritability and some of the leads which do not affect the overall interpretation. She has normal intervals normal axis no evidence of acute ST-T wave changes. Computer generated interpretation: Chest X-Ray 04/14/21 21:54 IMPRESSION: 1. No acute cardiopulmonary process. 2. Incidental/nonacute findings are listed in the report. Discharge Plan Discharge Patient Disposition: Home Clinical Impression: COVID-19 Condition: Stable Prescriptions: No Action hydrocodone-acetaminophen 5-325 mg tablet 1 tab PO Q6H PRN (Reason: pain) Qty: 14 0RF Robaxin-750 750 mg tablet 750 mg PO Q6H Qty: 30 0RF methylprednisolone 4 mg tablets,dose pack See Rx Instructions .ROUTE .COMPLEX Qty: 21 0RF Rx Instructions: orally per package directions citalopram 40 mg tablet 40 mg PO DAILY@0700 0RF alprazolam 0.5 mg tablet 0.5 mg PO BID@699,1999 0RF pregabalin 150 mg capsule 150 mg PO BID@699,1999 0RF acetaminophen 500 mg Tablet 500 - 1,000 mg PO Q6H PRN (Reason: Pain) 0RF famotidine 20 mg tablet 20 mg PO BID@699,1999 0RF ProAir HFA 90 mcg/actuation HFA aerosol inhaler 1 - 2 puff INHALATION QID PRN (Reason: Wheezing) 0RF tramadol 50 mg tablet 50 mg PO Q6H PRN (Reason: pain) Qty: 20 0RF nystatin 100,000 unit/gram powder 1 applic topical DAILY Qty: 60 0RF hydrocodone-acetaminophen 5-325 mg tablet 1 tab PO Q8H PRN (Reason: pain) Qty: 10 0RF Medrol (Car) 4 mg tablets,dose pack See Rx Instructions .ROUTE .COMPLEX Qty: 21 0RF Rx Instructions: orally per package directions Discharge Orders: Discharge ED (Routine); Ordered 04/14/21 Ordered By: Evin Kuhn Other Ambulatory Orders: DME: Oxygen (Order) Location: None Selected Ordered By: Evin Kuhn Referrals: Riley Walker MD [Primary Care Provider] - 1-3 days Discharge Diet: Advance as tolerated Discharge Activity: Resume usual activity Patient Instructions: COVID-19 (Coronavirus Disease 2019) (ED) Coding Level of Care Code ED Ticker Installer for Chg Fwd Exam Comprehensive Documented by User: Evin Kuhn MD 04/15/21 00:19 HPI - General Adult General: Chief complaint: Nausea/Vomiting/Diarrhea Stated complaint: nausea/fatigue Time Seen by Provider: 04/14/21 21:52 [facility] ED PFSH: Medical History (Updated 04/14/21 @ 23:35 by Evin Kuhn MD) Arthritis Chronic respiratory failure with hypoxia COVID-19 Depression with anxiety GERD (gastroesophageal reflux disease) Morbid obesity with BMI of 50.0-59.9, adult Surgical History H/O knee surgery Previous section Family History Father Alcoholism Mother Psychiatric illness Social History Smoking and tobacco status: never smoked Course Vital Signs: Vital signs: Vital Signs Temperature 98.4 F 04/14/21 21:45 Pulse Rate 89 04/14/21 21:45 Respiratory Rate 18 04/14/21 21:45 Blood Pressure 137/67 04/14/21 21:45 Pulse Oximetry 88 L 04/14/21 21:45 MDM - General Adult Medical Decision Making Patient presents here with some nausea vomiting weakness she did test positive for Covid these are likely causing her symptoms she states she has oxygen at home she uses as needed patient's had some mild hypoxia told her she needs to wear 2 L at all times she has a pulse ox at home as well I informed her she has any worsening symptoms or hypoxia on the 2 L she is to return she understands agrees to plan. Lab Data : 04/14/21 22:15 04/14/21 22:15 Radiology Impressions Chest X-Ray 04/14/21 21:54 IMPRESSION: 1. No acute cardiopulmonary process. 2. Incidental/nonacute findings are listed in the report. Laboratory Results WBC 13.7 10^3/uL (4.0-10.0) H 04/14/21 22:15 RBC 5.12 10^6/uL (4.1-5.3) 04/14/21 22:15 Hgb 11.8 g/dL (11.5-15.3) 04/14/21 22:15 Hct 38.5 % (37.0-47.0) 04/14/21 22:15 MCV 75.2 fl (81-99) L 04/14/21 22:15 MCH 23.0 pg (28.0-34.0) L 04/14/21 22:15 MCHC 30.6 g/dL (30.0-36.0) 04/14/21 22:15 RDW 20.9 % (12.1-15.1) H 04/14/21 22:15 Plt Count 380 10^3/cmm (130-400) 04/14/21 22:15 MPV 9.7 fL (7.4-10.4) 04/14/21 22:15 Neut % (Auto) 93.4 % 04/14/21 22:15 Lymph % (Auto) 2.0 % 04/14/21 22:15 [place] % (Auto) 3.5 % 04/14/21 22:15 Eos % (Auto) 0.1 % 04/14/21 22:15 Baso % (Auto) 0.3 % 04/14/21 22:15 Neut # (Auto) 12.82 10^3/uL (1.8-7.7) H 04/14/21 22:15 Lymph # (Auto) 0.3 10^3/uL (0.8-4.8) L 04/14/21 22:15 [place] # (Auto) 0.5 10^3/uL (0.2-0.9) 04/14/21 22:15 Eos # (Auto) 0.0 10^3/uL (0.0-0.8) 04/14/21 22:15 Baso # (Auto) 0.0 10^3/uL (0.0-0.1) 04/14/21 22:15 Nucleated RBC % (auto) 0 % 04/14/21 22:15 Nucleated RBCs # 0.0 /100WBC 04/14/21 22:15 Sodium 135 mmol/L (136-145) L 04/14/21 22:15 Potassium 4.3 mmol/L (3.5-5.1) 04/14/21 22:15 Chloride 98 mmol/L (98-107) 04/14/21 22:15 Carbon Dioxide 24 mmol/L (22-29) 04/14/21 22:15 Anion Gap 17.3 (5-19) 04/14/21 22:15 BUN 11 mg/dL (8-23) 04/14/21 22:15 Creatinine 0.6 mg/dL (0.5-0.9) 04/14/21 22:15 GFR Calculation 99.4 mL/min (90-130) 04/14/21 22:15 Glucose 113 mg/dL (65-115) 04/14/21 22:15 Calculated Osmolality 280 mOsm/kg (285-295) L 04/14/21 22:15 Calcium 9.0 mg/dL (8.5-10.5) 04/14/21 22:15 Total Bilirubin 0.3 mg/dL (0.15-1.2) 04/14/21 22:15 AST 18 U/L (0-32) 04/14/21 22:15 ALT 10 U/L (0-33) 04/14/21 22:15 Alkaline Phosphatase 142 IU/L (35-105) H 04/14/21 22:15 Troponin T Gen 5 ng/L 10 ng/L (0-10) 04/14/21 22:15 NT-Pro-B Natriuret Pep 549 pg/mL (0-125) H 04/14/21 22:15 Total Protein 6.7 g/dL (6.6-8.7) 04/14/21 22:15 Albumin 3.6 g/dL (3.5-5.2) 04/14/21 22:15 Globulin 3.1 g/dL (1.3-4.6) 04/14/21 22:15 SARS-CoV-2 Ag (Rapid) Positive (Negative) H 04/14/21 22:11 EKG Data EKG 1: Computer generated interpretation: Chest X-Ray 04/14/21 21:54 IMPRESSION: 1. No acute cardiopulmonary process. 2. Incidental/nonacute findings are listed in the report. Discharge Plan Discharge Patient Disposition: Home Clinical Impression: COVID-19 Condition: Stable Prescriptions: No Action hydrocodone-acetaminophen 5-325 mg tablet 1 tab PO Q6H PRN (Reason: pain) Qty: 14 0RF Robaxin-750 750 mg tablet 750 mg PO Q6H Qty: 30 0RF methylprednisolone 4 mg tablets,dose pack See Rx Instructions .ROUTE .COMPLEX Qty: 21 0RF Rx Instructions: orally per package directions citalopram 40 mg tablet 40 mg PO DAILY@0700 0RF alprazolam 0.5 mg tablet 0.5 mg PO BID@0700,1999 0RF pregabalin 150 mg capsule 150 mg PO BID@0700,1999 0RF acetaminophen 500 mg Tablet 500 - 1,000 mg PO Q6H PRN (Reason: Pain) 0RF famotidine 20 mg tablet 20 mg PO BID@699,1999 0RF ProAir HFA 90 mcg/actuation HFA aerosol inhaler 1 - 2 puff INHALATION QID PRN (Reason: Wheezing) 0RF tramadol 50 mg tablet 50 mg PO Q6H PRN (Reason: pain) Qty: 20 0RF nystatin 100,000 unit/gram powder 1 applic topical DAILY Qty: 60 0RF hydrocodone-acetaminophen 5-325 mg tablet 1 tab PO Q8H PRN (Reason: pain) Qty: 10 0RF Medrol (Car) 4 mg tablets,dose pack See Rx Instructions .ROUTE .COMPLEX Qty: 21 0RF Rx Instructions: orally per package directions Discharge Orders: Discharge ED (Routine); Ordered 04/14/21 Ordered By: Evin Kuhn Other Ambulatory Orders: DME: Oxygen (Order) Location: None Selected Ordered By: Evin Kuhn Referrals: Riley Walker MD [Primary Care Provider] - 1-3 days Discharge Diet: Advance as tolerated Discharge Activity: Resume usual activity Patient Instructions: COVID-19 (Coronavirus Disease 2019) (ED) Coding Level of Care Code ED Ticker Installer for Chg Fwd Exam Comprehensive
[2021-04-14 22:37] LABS: Basophils % 0.3 %; Eosinophils % 0.1 %; Hematocrit 38.5 % (37.0-47.0); Hemoglobin 11.8 g/dL (11.5-15.3); Lymphocytes # 0.3 10^3/uL (0.8-4.8); Mean Corpuscular HGB Conc 30.6 g/dL (30.0-36.0); Mean Corpuscular Volume 75.2 fl (81-99); Mean Platelet Volume 9.7 fL (7.4-10.4); Monocytes # 0.5 10^3/uL (0.2-0.9); Monocytes % 3.5 %; Neutrophils # 12.82 10^3/uL (1.8-7.7); Neutrophils % 93.4 %; Nucleated Red Blood Cells % 0 %; Platelet Count 380 10^3/cmm (130-400); Red Blood Count 5.12 10^6/uL (4.1-5.3); Red Cell Distribution Width 20.9 % (12.1-15.1); White Blood Count 13.7 10^3/uL (4.0-10.0)
[2021-04-14 22:57] LABS: Troponin T (5th) Once 10 ng/L (0-10)
[2021-04-14 23:00] LABS: SARS Covid-2 Antigen Positive (Negative)
[2021-04-14 23:08] LABS: Alanine Aminotransferase 10 U/L (0-33); Albumin Level 3.6 g/dL (3.5-5.2); Alkaline Phosphatase 142 IU/L (35-105); Anion Gap 17.3 (5-19); Aspartate Amino Transferase 18 U/L (0-32); Blood Urea Nitrogen 11 mg/dL (8-23); Carbon Dioxide 24 mmol/L (22-29); Chloride 98 mmol/L (98-107); Globulin 3.1 g/dL (1.3-4.6); Glomerular Filtration Rate 99.4 mL/min (90-130); Glucose 113 mg/dL (65-115); NT Pro B Type Natriuretic Pept 549 pg/mL (0-125); Osmolality Calculated 280 mOsm/kg (285-295); Potassium 4.3 mmol/L (3.5-5.1); Sodium 135 mmol/L (136-145); Total Bilirubin 0.3 mg/dL (0.15-1.2); Total Protein 6.7 g/dL (6.6-8.7)
[2021-04-15 01:08] VITALS: BP 137/67; PULSE 89; RESP 18; TEMP 36.9; O2SAT 90
== END 2021-04-15 01:12 | disposition home or self-care (01) ==
PROVIDERS: Emergency Medicine; Emergency Provider Emergency Medicine; PCP Family Medicine
DX: U07.1 COVID-19 (principal)
CPT/HCPCS: 71045; 80053; 83880; 84484; 85025; 87426; 93005; 99283

== ENCOUNTER 2022-12-05 19:48 | Emergency (ER) | payer MEDICARE, MEDICAID, SELFPAY ==
[2022-12-05 19:51] VITALS: BP 178/93; PULSE 71; RESP 20; TEMP 36.7; O2SAT 98; BMI 49.9
--- NOTE | 2022-12-05 19:58 | ECG_ITS ---
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 Measurements Intervals [place] Rate: 66 P: 38 NV: 131 QRS: 55 QRSD: 97 T: 44 QT: 355 QTc: 372 Interpretive Statements SINUS RHYTHM WITH SINUS ARRHYTHMIA NONSPECIFIC T-WAVE ABNORMALITY Compared to ECG 04/14/2021 22:31:31 No significant changes Electronically Signed On 12-06-2022 7:41:23 CDT by Daniel Allen M.D. [id number]
--- NOTE | 2022-12-05 19:58 | XRR_ITS ---
PROCEDURE INFORMATION: Exam: XR Chest Exam date and time: 12/05/2022 8:01 PM Age: 72 years old Clinical indication: Dyspnea TECHNIQUE: Imaging protocol: Radiologic exam of the chest. Views: 1 view. COMPARISON: CR XR chest 1V portable [id number] 04/14/2021 10:16 PM FINDINGS: Lungs: The lungs are clear. Pleural spaces: Unremarkable. No pleural effusion. No pneumothorax. Heart/Mediastinum: Unremarkable. No cardiomegaly. Bones/joints: Unremarkable. XR/XR chest 1V portable [id number] IMPRESSION: No change, lungs clear
[2022-12-05 20:21] LABS: Basophils % 0.4 %; Eosinophils # 0.3 10^3/uL (0.0-0.8); Eosinophils % 2.8 %; Hematocrit 38.6 % (36-47); Lymphocytes # 1.1 10^3/uL (0.8-4.8); Mean Corpuscular HGB Conc 30.8 g/dL (30-55); Mean Corpuscular Volume 81.1 fl (85-98); Mean Platelet Volume 9.9 fL (7.4-10.4); Monocytes # 0.6 10^3/uL (0.2-0.9); Monocytes % 5.5 %; Neutrophils # 7.91 10^3/uL (1.8-7.7); Neutrophils % 79.9 %; Nucleated Red Blood Cells % 0 %; Platelet Count 305 10^3/cmm (157-399); Red Blood Count 4.76 10^6/uL (3.85-5.65); Red Cell Distribution Width 17.7 % (12.1-15.1); White Blood Count 9.91 10^3/uL (3.29-11.43)
[2022-12-05 20:51] LABS: Alanine Aminotransferase 26 U/L (0-33); Albumin Level 3.9 g/dL (3.5-5.2); Alkaline Phosphatase 156 U/L (35-105); Anion Gap 10.1 (5-19); Aspartate Amino Transferase 28 U/L (0-32); Blood Urea Nitrogen 11 mg/dL (8-23); Calcium 9.2 mg/dL (8.5-10.5); Carbon Dioxide 32 mmol/L (22-29); Chloride 104 mmol/L (98-107); Globulin 3.4 g/dL (1.3-4.6); Glomerular Filtration Rate 82.7 mL/min (90-130); Glucose 97 mg/dL (65-115); Magnesium 1.9 mg/dL (1.7-2.3); NT Pro B Type Natriuretic Pept 493 pg/mL (0-125); Osmolality Calculated 293 mOsm/kg (285-295); Potassium 4.1 mmol/L (3.5-5.1); Sodium 142 mmol/L (136-145); Total Bilirubin 0.2 mg/dL (0.15-1.2); Total Protein 7.3 g/dL (6.6-8.7)
--- NOTE | 2022-12-05 21:29 | W.ED.GENADLT ---
HPI - General Adult General: Chief complaint: General Medical Stated complaint: wheezing, cough Time Seen by Provider: 12/05/22 19:53 History of Present Illness: Patient presents to the ER with a complaints of cough since Sunday. Patient says she started coughing up clear mucus today. Patient does have chills but no fever. Patient has anxiety because she tried to get a hold of someone in her family but could not reach anyone. Patient recently lost her and is tearful at this time. Patient does not use any oxygen at home. Patient is satting 98% on room air here. Review of Systems General: Reports: 10 or more systems reviewed and unremarkable except in HPI and below PFSH ED PFSH: Medical History Arthritis Chronic respiratory failure with hypoxia COVID-19 Depression with anxiety GERD (gastroesophageal reflux disease) Morbid obesity with BMI of 50.0-59.9, adult Surgical History H/O knee surgery Previous section Family History Father Alcoholism Mother Psychiatric illness Social History Smoking and tobacco status: never smoked Physical Exam Const: COMMON NORMALS: no acute distress, average body habitus, patient oriented x3, no limitations, healthy appearing, alert and well nourished HENMT: COMMON NORMALS: normocephalic, atraumatic, hearing grossly normal bilaterally, external ears normal, Normal external nose present and moist oral mucous membranes HEAD & SCALP: normocephalic and atraumatic NOSE: Normal external nose present EXTERNAL EAR: Yes external ears normal Eye: COMMON NORMALS: Equal, round and reactive pupils present, EOMs intact bilaterally, conjunctivae normal and no scleral icterus CONJUNCTIVA: Yes conjunctivae normal PUPIL: Yes Equal, round and reactive pupils present Neck/C-Spine: COMMON NORMALS: full ROM, no lymphadenopathy, supple, no meningeal signs, no JVD and Thyroid normal THYROID: Thyroid normal Lymph: LYMPHATIC: no lymphadenopathy noted Chest: COMMONS NORMALS: normal inspection of the chest and normal palpation of entire chest wall Resp: COMMON NORMALS: normal respiratory effort, No retractions, No use of accessory muscles and clear to auscultation bilaterally AUSCULTATION: clear to auscultation bilaterally Cardio: COMMON NORMALS: no JVD, regular rate, regular rhythm, S1 normal heart sound present, S2 normal heart sound present, No gallops present (Cardio), No clicks present (Cardio), No murmurs present (Cardio) and No rub (Cardio) RATE: regular rate RHYTHM: regular rhythm HEART SOUNDS: S1 normal heart sound present and S2 normal heart sound present GI: COMMON NORMALS: Normal to inspection, nondistended, normoactive bowel sounds present, Soft to palpation, non-tender and No hepatosplenomegaly present PALPATION: Yes Soft to palpation and Yes No hepatosplenomegaly present : COMMON NORMALS: Yes no CVA tenderness BLADDER/KIDNEY EXAM: Yes no CVA tenderness Back/Pelvis: COMMON NORMALS: no CVA tenderness Neuro: COMMON NORMALS: patient oriented x3 SENSORIUM/ORIENTATION: Yes alert MENINGEAL SIGNS: Yes no meningeal signs Course Vital Signs: Vital signs: Vital Signs Temperature 98.0 F 12/05/22 19:51 Pulse Rate 71 12/05/22 19:51 Respiratory Rate 20 H 12/05/22 19:51 Blood Pressure 178/93 12/05/22 19:51 Pulse Oximetry 98 12/05/22 19:51 Oxygen Delivery Me thod Room Air 12/05/22 19:51 MDM - General Adult Medical Decision Making Patient presents today with cough for the last 3 to 4 days and she is coughing up clear mucus. Patient also has anxiety. Patient had a chest x-ray performed that was negative as well as lab work. We are awaiting a respiratory panel. Patient is getting antsy and is ready to go home. Patient be discharged home and we will call her with the results of the her respiratory panel. Patient should follow-up with her PCP in approximately 7 days or sooner. Differential Diagnosis Cough, URI, pneumonia, COPD, Medical Records I reviewed the patient's medical records. Lab Data I reviewed the patient's lab results. 12/05/22 20:16 12/05/22 20:16 Radiology Impressions Chest X-Ray 12/05/22 19:58 IMPRESSION: No change, lungs clear Laboratory Results WBC 9.91 10^3/uL (3.29-11.43) 12/05/22 20:16 RBC 4.76 10^6/uL (3.85-5.65) 12/05/22 20:16 Hgb 11.90 g/dL (11.27-16.99) 12/05/22 20:16 Hct 38.6 % (36-47) 12/05/22 20:16 MCV 81.1 fl (85-98) L 12/05/22 20:16 MCH 25.0 pg (27-33) L 12/05/22 20:16 MCHC 30.8 g/dL (30-55) 12/05/22 20:16 RDW 17.7 % (12.1-15.1) H 12/05/22 20:16 Plt Count 305 10^3/cmm (157-399) 12/05/22 20:16 MPV 9.9 fL (7.4-10.4) 12/05/22 20:16 Neut % (Auto) 79.9 % 12/05/22 20:16 Lymph % (Auto) 11.0 % 12/05/22 20:16 [place] % (Auto) 5.5 % 12/05/22 20:16 Eos % (Auto) 2.8 % 12/05/22 20:16 Baso % (Auto) 0.4 % 12/05/22 20:16 Neut # (Auto) 7.91 10^3/uL (1.8-7.7) H 12/05/22 20:16 Lymph # (Auto) 1.1 10^3/uL (0.8-4.8) 12/05/22 20:16 [place] # (Auto) 0.6 10^3/uL (0.2-0.9) 12/05/22 20:16 Eos # (Auto) 0.3 10^3/uL (0.0-0.8) 12/05/22 20:16 Baso # (Auto) 0.0 10^3/uL (0.0-0.1) 12/05/22 20:16 Nucleated RBC % (auto) 0 % 12/05/22 20:16 Nucleated RBCs # 0.0 /100WBC 12/05/22 20:16 Sodium 142 mmol/L (136-145) 12/05/22 20:16 Potassium 4.1 mmol/L (3.5-5.1) 12/05/22 20:16 Chloride 104 mmol/L (98-107) 12/05/22 20:16 Carbon Dioxide 32 mmol/L (22-29) H 12/05/22 20:16 Anion Gap 10.1 (5-19) 12/05/22 20:16 BUN 11 mg/dL (8-23) 12/05/22 20:16 Creatinine 0.7 mg/dL (0.5-0.9) 12/05/22 20:16 GFR Calculation 82.7 mL/min (90-130) L 12/05/22 20:16 Glucose 97 mg/dL (65-115) 12/05/22 20:16 Calculated Osmolality 293 mOsm/kg (285-295) 12/05/22 20:16 Calcium 9.2 mg/dL (8.5-10.5) 12/05/22 20:16 Magnesium 1.9 mg/dL (1.7-2.3) 12/05/22 20:16 Total Bilirubin 0.2 mg/dL (0.15-1.2) 12/05/22 20:16 AST 28 U/L (0-32) 12/05/22 20:16 ALT 26 U/L (0-33) 12/05/22 20:16 Alkaline Phosphatase 156 U/L (35-105) H 12/05/22 20:16 NT-Pro-B Natriuret Pep 493 pg/mL (0-125) H 12/05/22 20:16 Total Protein 7.3 g/dL (6.6-8.7) 12/05/22 20:16 Albumin 3.9 g/dL (3.5-5.2) 12/05/22 20:16 Globulin 3.4 g/dL (1.3-4.6) 12/05/22 20:16 All radiology interpretation(s) finalized by discharge EKG Data EKG 1: I personally reviewed and interpreted this EKG as follows: EKG interpretation date: 12/05/22 EKG interpretation time: 21:19 Prior EKG tracings: not available for review Interpretation: EKG showed ventricular rate 66 bpm, [place] interval 131, QRS duration 97, QTc 368, sinus rhythm with sinus arrhythmia, nonspecific T wave abnormality Computer generated interpretation: Chest X-Ray 12/05/22 19:58 IMPRESSION: No change, lungs clear Discharge Plan Discharge Patient Disposition: Home Clinical Impression: Anxiety Cough Qualifiers: Cough type: acute Qualified Code(s): R05.1 - Acute cough URI (upper respiratory infection) Qualifiers: URI type: unspecified viral URI Qualified Code(s): J06.9 - Acute upper respiratory infection, unspecified Condition: Stable Prescriptions: No Action hydrocodone-acetaminophen 5-325 mg tablet 1 tab PO Q6H PRN (Reason: pain) Qty: 14 0RF Robaxin-750 750 mg tablet 750 mg PO Q6H Qty: 30 0RF methylprednisolone 4 mg tablets,dose pack See Rx Instructions .ROUTE .COMPLEX Qty: 21 0RF Rx Instructions: orally per package directions citalopram 40 mg tablet 40 mg PO DAILY@0700 alprazolam 0.5 mg tablet 0.5 mg PO BID@0700,1999 pregabalin 150 mg capsule 150 mg PO BID@0700,1999 acetaminophen 500 mg Tablet 500 - 1,000 mg PO Q6H PRN (Reason: Pain) famotidine 20 mg tablet 20 mg PO BID@0700,1999 ProAir HFA 90 mcg/actuation HFA aerosol inhaler 1 - 2 puff INHALATION QID PRN (Reason: Wheezing) tramadol 50 mg tablet 50 mg PO Q6H PRN (Reason: pain) Qty: 20 0RF nystatin 100,000 unit/gram powder 1 applic topical DAILY Qty: 60 0RF hydrocodone-acetaminophen 5-325 mg tablet 1 tab PO Q8H PRN (Reason: pain) Qty: 10 0RF Medrol (Car) 4 mg tablets,dose pack See Rx Instructions .ROUTE .COMPLEX Qty: 21 0RF Rx Instructions: orally per package directions Discharge Orders: Discharge ED (Routine); Ordered 12/05/22 Ordered By: Dinesh Gilliam Referrals: Riley Walker MD [Primary Care Provider] - 1 week Patient Instructions: Acute Cough (ED), Upper Respiratory Infection - Adult Activity Restrictions/Additional Instructions: You have a respiratory panel pending in the emergency room. You will be called if the results change any of your treatment. Please follow-up with your family practice doctor within the next 7 days or sooner as needed for further evaluation and treatment. Coding Level of Care Code ED Out Patient Therapist for Shiloh Alexander
[2022-12-05 21:47] LABS: Adenovirus Not Detected (NOT DETECT); Chlamydia Pneumoniae Not Detected (NOT DETECT); Coronavirus 229E,HKU1,NL63,OC4 Not Detected (NOT DETECT); Human Metapneumovirus Not Detected (NOT DETECT); Human Rhinovirus/Enterovirus Detected (NOT DETECT); Influenza A Not Detected (NOT DETECT); Influenza A H1 Not Detected (NOT DETECT); Influenza A H1-2009 Not Detected (NOT DETECT); Influenza A H3 Not Detected (NOT DETECT); Influenza B Not Detected (NOT DETECT); Mycoplasma Pneumoniae Not Detected (NOT DETECT); Parainfluenza Virus Type 1 Not Detected (NOT DETECT); Parainfluenza Virus Type 2 Not Detected (NOT DETECT); Parainfluenza Virus Type 3 Not Detected (NOT DETECT); Parainfluenza Virus Type 4 Not Detected (NOT DETECT); Respiratory Syncytial Virus A Not Detected (NOT DETECT); Respiratory Syncytial Virus B Not Detected (NOT DETECT); SARS-COV-2 Not Detected (NOT DETECT)
[2022-12-05 22:18] VITALS: BP 167/57; PULSE 68; RESP 16; O2SAT 97
== END 2022-12-05 22:18 | disposition home or self-care (01) ==
PROVIDERS: Emergency Provider Emergency Medicine; PCP Family Medicine
DX: R05.9 Cough, unspecified (principal); J06.9 Acute upper respiratory infection, unspecified; F41.9 Anxiety disorder, unspecified
CPT/HCPCS: 36415; 71045; 80053; 83735; 83880; 85025; 87486; 87581; 87633; 93005; 99285

== ENCOUNTER 2023-10-30 15:27 | Emergency (ER) | payer MEDICARE, MEDICAID, SELFPAY ==
[2023-10-30 15:27] VITALS: PULSE 77; RESP 22; TEMP 36.4; O2SAT 100; BMI 47.9
--- NOTE | 2023-10-30 15:38 | ECG_ITS ---
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 Measurements Intervals Blanket Rate: 72 P: 25 SC: 143 QRS: 40 QRSD: 98 T: 14 QT: 387 QTc: 426 Interpretive Statements SINUS RHYTHM Compared to ECG 12/05/2022 21:19:27 Sinus arrhythmia no longer present T-wave abnormality no longer present Electronically Signed On 10-30-2023 16:26:15 CDT by Daniel Allen M.D. [id number] f
--- NOTE | 2023-10-30 15:38 | XR_ITS ---
WS: [id number] Examination: XR chest 1V portable [id number] Reason for Exam: dyspnea/cough Date: October 30, 2023 Comparison: December 05, 2022 Findings: The heart is not grossly enlarged on this AP portable film. The mediastinum is not widened. There is no pulmonary edema or large effusion. There is no dense consolidation. XR/XR chest 1V portable [id number] Impression: No acute lung process is identified.
--- NOTE | 2023-10-30 15:43 | ED_ITS ---
Documented by User: Derick Nolen DO 10/31/23 05:51 HPI - Chest Pain 2 General: Chief Complaint: Chest Pain Stated Complaint: Chest pain Time Seen by Provider: 10/30/23 15:32 History of Present Illness: 72-year-old female who presents to the e mergency room complaining of chest discomfort. Patient states she has a history of hypertension that she began having chest discomfort radiating to the left side of her chest her left shoulder and neck and somewhat into her back. She became very concerned that she was having a heart attack. Her recently of a sudden heart attack. She did not had not had any neurologic focal symptoms. No previous known coronary artery disease although she is hypertensive. Associated symptoms: Deny abdominal pain, dyspnea or fever(s) Related Data Home Medications Medication Instructions Recorded Confirmed alprazolam 0.5 mg tablet 0.5 mg PO BID@0700,199911/12/19 08/07/20 citalopram 40 mg tablet 40 mg PO DAILY@0700 11/12/19 08/07/20 pregabalin 150 mg capsule 150 mg PO BID@0700,199911/12/19 08/07/20 acetaminophen 500 mg tablet 500 - 1,000 mg PO Q6H PRN Pain 08/07/20 08/07/20 albuterol sulfate 90 mcg/actuation 1 - 2 puff inhalation QID PRN 08/07/20 08/07/20 aerosol inhaler (ProAir HFA) Wheezing famotidine 20 mg tablet 20 mg PO BID@0700,199908/07/20 08/07/20 Previous Rx's Medication Instructions Recorded nystatin 100,000 unit/gram topical 1 applic topical DAILY #60 grams 08/07/20 powder tramadol 50 mg tablet 50 mg PO Q6H PRN pain #20 tabs 08/07/20 hydrocodone 5 mg-acetaminophen 325 1 tab PO Q8H PRN pain #10 tabs 08/16/20 mg tablet methylprednisolone 4 mg tablets in See Rx Instructions PO .COMPLEX 08/16/20 a dose pack (Medrol (Car)) #21 ea hydrocodone 5 mg-acetaminophen 325 1 tab PO Q6H PRN pain #14 tabs 08/29/20 mg tablet methocarbamol 750 mg tablet 750 mg PO Q6H #30 tabs 08/29/20 (Robaxin-750) methylprednisolone 4 mg tablets in See Rx Instructions PO .COMPLEX 09/01/20 a dose pack #21 ea Allergies Allergy/AdvReac Type Severity Reaction Status Date / Time bupropion [From Wellbutrin] Allergy Unknown Verified 10/30/23 15:41 codeine Allergy ADR-Nausea Verified 12/05/22 19:59 morphine Allergy Unknown Verified 12/05/22 19:59 Review of Systems 2 Const: Denies: fever(s) or chills Card: Denies: chest pain Resp: Denies: dyspnea GI: Denies: abdominal pain : Denies: dysuria, urinary frequency or urinary urgency Musc: Denies: neck pain or back pain Skin/Breast: Denies: rash PFSH ED 2 PFSH: Medical History Chronic respiratory failure with hypoxia Morbid obesity with BMI of 50.0-59.9, adult COVID-19 Depression with anxiety GERD (gastroesophageal reflux disease) Arthritis Surgical History Previous section H/O knee surgery Family History Father Alcoholism Mother Psychiatric illness Social History Smoking and tobacco/nicotine status: never used tobacco/nicotine Physical Exam 2 Const: COMMON NORMALS: no acute distress GENERAL APPEARANCE: cooperative and comfortable NUTRITIONAL APPEARANCE: obese ORIENTATION/CONSCIOUSNESS: Y es awake, Yes oriented to person, Yes oriented to place and Yes oriented to time HENMT: COMMON NORMALS: normocephalic, atraumatic and hearing grossly normal bilaterally HEAD & SCALP: normocephalic and atraumatic Resp: COMMON NORMALS: normal respiratory effort, No retractions, No use of accessory muscles and clear to auscultation bilaterally AUSCULTATION: clear to auscultation bilaterally Cardio: COMMON NORMALS: regular rate, regular rhythm and No murmurs present (Cardio) RATE: regular rate RHYTHM: regular rhythm GI: COMMON NORMALS: Soft to palpation and No hepatosplenomegaly present A USCULTATION: Yes normoactive bowel sounds PALPATION: Yes Soft to palpation, No Tenderness to palpation present (GI), No Guarding due to palpation present (GI) and Yes No hepatosplenomegaly present Extremity: COMMON NORMALS: normal to inspection, capillary refill normal, no clubbing, cyanosis or edema, no calf tenderness and no pedal edema Neuro: SENSORIUM/ORIENTATION: Yes oriented to person, Yes oriented to place and Yes oriented to time Skin: COMMON NORMALS: no rashes or lesions noted GENERAL SKIN EXAM: no rashes or lesions noted Course 2 Vital Signs: Vital signs: Vital Signs Temperature 97.5 F L 10/30/23 18:48 Pulse Rate 78 10/30/23 18:48 Respiratory Rate 22 H 10/30/23 18:48 Blood Pressure 173/86 10/30/23 18:48 Pulse Oximetry 92 10/30/23 18:48 Oxygen Delivery Ak thod Room Air 10/30/23 18:05 Oxygen Flow Rate 2 10/30/23 15:27 MDM - Chest Pain Medical Decision Making Care signed out to Dr. Nowak at change of shift. See final notes for diagnosis and disposition. Patient care was transitioned to pr at shift change awaiting second serial troponin. This was negative. The remainder of the workups been negative. EKG showed no ischemic changes. Chest x-ray is clear. EKGs show no ischemic changes. Assessment and plan: Noncardiac chest pain - Discharged home - Discussed findings and plan with patient. Answered any questions. - All laboratory values were reviewed and interpreted personally by myself, the ER physician - All imaging was reviewed and interpreted personally by myself, the ER physician. - Evaluation and treatment of this problem were appropriate in the emergency setting Lab Data 10/30/23 15:47 10/30/23 15:47 Radiology Impressions Chest X-Ray 10/30/23 15:38 Impression: No acute lung process is identified. Laboratory Results WBC 13.08 10^3/uL (3.29-11.43) H 10/30/23 15:47 RBC 5.04 10^6/uL (3.85-5.65) 10/30/23 15:47 Hgb 12.80 g/dL (11.27-16.99) 10/30/23 15:47 Hct 41.8 % (36-47) 10/30/23 15:47 MCV 82.9 fl (85-98) L 10/30/23 15:47 MCH 25.4 pg (27-33) L 10/30/23 15:47 MCHC 30.6 g/dL (30-55) 10/30/23 15:47 RDW 16.8 % (12.1-15.1) H 10/30/23 15:47 Plt Count 344 10^3/cmm (157-399) 10/30/23 15:47 MPV 10.6 fL (7.4-10.4) H 10/30/23 15:47 Neut % (Auto) 87.6 % 10/30/23 15:47 Lymph % (Auto) 6.2 % 10/30/23 15:47 [place] % (Auto) 4.6 % 10/30/23 15:47 Eos % (Auto) 1.1 % 10/30/23 15:47 Baso % (Auto) 0.2 % 10/30/23 15:47 Neut # (Auto) 11.46 10^3/uL (1.8-7.7) H 10/30/23 15:47 Lymph # (Auto) 0.8 10^3/uL (0.8-4.8) 10/30/23 15:47 [place] # (Auto) 0.6 10^3/uL (0.2-0.9) 10/30/23 15:47 Eos # (Auto) 0.1 10^3/uL (0.0-0.8) 10/30/23 15:47 Baso # (Auto) 0.0 10^3/uL (0.0-0.1) 10/30/23 15:47 Nucleated RBC % (auto) 0 % 10/30/23 15:47 Nucleated RBCs # 0.0 /100WBC 10/30/23 15:47 Sodium 142 mmol/L (136-145) 10/30/23 15:47 Potassium 4.2 mmol/L (3.5-5.1) 10/30/23 15:47 Chloride 102 mmol/L (98-107) 10/30/23 15:47 Carbon Dioxide 30 mmol/L (22-29) H 10/30/23 15:47 Anion Gap 14.2 (5-19) 10/30/23 15:47 BUN 12 mg/dL (8-23) 10/30/23 15:47 Creatinine 0.7 mg/dL (0.5-0.9) 10/30/23 15:47 GFR Calculation 82.7 mL/min (90-130) L 10/30/23 15:47 Glucose 101 mg/dL (65-115) 10/30/23 15:47 Calculated Osmolality 294 mOsm/kg (285-295) 10/30/23 15:47 Calcium 9.3 mg/dL (8.5-10.5) 10/30/23 15:47 Total Bilirubin 0.3 mg/dL (0.15-1.2) 10/30/23 15:47 AST 18 U/L (0-32) 10/30/23 15:47 ALT 16 U/L (0-33) 10/30/23 15:47 Alkaline Phosphatase 114 U/L (35-105) H 10/30/23 15:47 Troponin T Baseline < 6 ng/L (0-10) 10/30/23 15:47 Troponin T 120 Minute 6.00 ng/L (0-10) 10/30/23 17:19 Delta Troponin T 0.62861 ABS# (0-10) 10/30/23 17:19 Total Protein 7.0 g/dL (6.6-8.7) 10/30/23 15:47 Albumin 3.8 g/dL (3.5-5.2) 10/30/23 15:47 Globulin 3.2 g/dL (1.3-4.6) 10/30/23 15:47 Discharge Plan Discharge Patient Disposition: Home Clinical Impression: Chest pain Condition: Stable Prescriptions: No Action hydrocodone-acetaminophen 5-325 mg tablet 1 tab PO Q6H PRN (Reason: pain) Qty: 14 0RF Robaxin-750 750 mg tablet 750 mg PO Q6H Qty: 30 0RF methylprednisolone 4 mg tablets,dose pack See Rx Instructions .ROUTE .COMPLEX Qty: 21 0RF Rx Instructions: orally per package directions citalopram 40 mg tablet 40 mg PO DAILY@0700 alprazolam 0.5 mg tablet 0.5 mg PO BID@07,1999 pregabalin 150 mg capsule 150 mg PO BID@0700,1999 acetaminophen 500 mg Tablet 500 - 1,000 mg PO Q6H PRN (Reason: Pain) famotidine 20 mg tablet 20 mg PO BID@0700,1999 ProAir HFA 90 mcg/actuation HFA aerosol inhaler 1 - 2 puff INHALATION QID PRN (Reason: Wheezing) tramadol 50 mg tablet 50 mg PO Q6H PRN (Reason: pain) Qty: 20 0RF nystatin 100,000 unit/gram powder 1 applic topical DAILY Qty: 60 0RF hydrocodone-acetaminophen 5-325 mg tablet 1 tab PO Q8H PRN (Reason: pain) Qty: 10 0RF Medrol (Car) 4 mg tablets,dose pack See Rx Instructions .ROUTE .COMPLEX Qty: 21 0RF Rx Instructions: orally per package directions Discharge Orders: Discharge ED (Routine); Ordered 10/30/23 Ordered By: Svetalna Nowak Referrals: Riley Walker MD [Primary Care Provider] - Discharge Diet: Usual diet Discharge Activity: Increase activity as tolerated Patient Instructions: Noncardiac Chest Pain (ED) Activity Restrictions/Additional Instructions: Thank you for choosing [facility] for your healthcare needs today. Please realize this is an emergency room and that we are providing you with a medical screening exam and this may not be complete and all inclusive of all the testing and or work up that you may need to determine your ailment or severity of your illness. You have been screened and evaluated and felt safe for discharge. Health conditions do change or evolve sometimes and as such it is important that you follow up with your Primary Doctor to be re checked, 3-5 days is a general good time frame for follow up. You are always welcome to return to the ED for re assessment if your symptoms are worsening or you have new concerns Coding Level of Care Code ED Horse Rancher for Chg Fwd Documented by User: Svetlana Nowak MD 10/30/23 18:23 HPI - Chest Pain 2 General: Chief Complaint: Chest Pain Stated Complaint: Chest pain Time Seen by Provider: 10/30/23 15:32 Related Data Home Medications Medication Instructions Recorded Confirmed alprazolam 0.5 mg tablet 0.5 mg PO BID@0700,199911/12/19 08/07/20 citalopram 40 mg tablet 40 mg PO DAILY@0700 11/12/19 08/07/20 pregabalin 150 mg capsule 150 mg PO BID@07,199911/12/19 08/07/20 acetaminophen 500 mg tablet 500 - 1,000 mg PO Q6H PRN Pain 08/07/20 08/07/20 albuterol sulfate 90 mcg/actuation 1 - 2 puff inhalation QID PRN 08/07/20 08/07/20 aerosol inhaler (ProAir HFA) Wheezing famotidine 20 mg tablet 20 mg PO BID@0700,199908/07/20 08/07/20 Previous Rx's Medication Instructions Recorded nystatin 100,000 unit/gram topical 1 applic topical DAILY #60 grams 08/07/20 powder tramadol 50 mg tablet 50 mg PO Q6H PRN pain #20 tabs 08/07/20 hydrocodone 5 mg-acetaminophen 325 1 tab PO Q8H PRN pain #10 tabs 08/16/20 mg tablet methylprednisolone 4 mg tablets in See Rx Instructions PO .COMPLEX 08/16/20 a dose pack (Medrol (Car)) #21 ea hydrocodone 5 mg-acetaminophen 325 1 tab PO Q6H PRN pain #14 tabs 08/29/20 mg tablet methocarbamol 750 mg tablet 750 mg PO Q6H #30 tabs 08/29/20 (Robaxin-750) methylprednisolone 4 mg tablets in See Rx Instructions PO .COMPLEX 09/01/20 a dose pack #21 ea Allergies Allergy/AdvReac Type Severity Reaction Status Date / Time bupropion [From Wellbutrin] Allergy Unknown Verified 10/30/23 15:41 codeine Allergy ADR-Nausea Verified 12/05/22 19:59 morphine Allergy Unknown Verified 12/05/22 19:59 PFSH ED 2 PFSH: Medical History Chronic respiratory failure with hypoxia Morbid obesity with BMI of 50.0-59.9, adult COVID-19 Depression with anxiety GERD (gastroesophageal reflux disease) Arthritis Surgical History Previous section H/O knee surgery Family History Father Alcoholism Mother Psychiatric illness Social History Smoking and tobacco/nicotine status: never used tobacco/nicotine Course 2 Vital Signs: Vital signs: Vital Signs Temperature 97.5 F L 10/30/23 18:48 Pulse Rate 78 10/30/23 18:48 Respiratory Rate 22 H 10/30/23 18:48 Blood Pressure 173/86 10/30/23 18:48 Pulse Oximetry 92 10/30/23 18:48 Oxygen Delivery Ak thod Room Air 10/30/23 18:05 Oxygen Flow Rate 2 10/30/23 15:27 MDM - Chest Pain Medical Decision Making Patient care was transitioned to pr at shift change awaiting second serial troponin. This was negative. The remainder of the workups been negative. EKG showed no ischemic changes. Chest x-ray is clear. EKGs show no ischemic changes. Assessment and plan: Noncardiac chest pain - Discharged home - Discussed findings and plan with patient. Answered any questions. - All laboratory values were reviewed and interpreted personally by myself, the ER physician - All imaging was reviewed and interpreted personally by myself, the ER physician. - Evaluation and treatment of this problem were appropriate in the emergency setting Lab Data 10/30/23 15:47 10/30/23 15:47 Radiology Impressions Chest X-Ray 10/30/23 15:38 Impression: No acute lung process is identified. Laboratory Results WBC 13.08 10^3/uL (3.29-11.43) H 10/30/23 15:47 RBC 5.04 10^6/uL (3.85-5.65) 10/30/23 15:47 Hgb 12.80 g/dL (11.27-16.99) 10/30/23 15:47 Hct 41.8 % (36-47) 10/30/23 15:47 MCV 82.9 fl (85-98) L 10/30/23 15:47 MCH 25.4 pg (27-33) L 10/30/23 15:47 MCHC 30.6 g/dL (30-55) 10/30/23 15:47 RDW 16.8 % (12.1-15.1) H 10/30/23 15:47 Plt Count 344 10^3/cmm (157-399) 10/30/23 15:47 MPV 10.6 fL (7.4-10.4) H 10/30/23 15:47 Neut % (Auto) 87.6 % 10/30/23 15:47 Lymph % (Auto) 6.2 % 10/30/23 15:47 [place] % (Auto) 4.6 % 10/30/23 15:47 Eos % (Auto) 1.1 % 10/30/23 15:47 Baso % (Auto) 0.2 % 10/30/23 15:47 Neut # (Auto) 11.46 10^3/uL (1.8-7.7) H 10/30/23 15:47 Lymph # (Auto) 0.8 10^3/uL (0.8-4.8) 10/30/23 15:47 [place] # (Auto) 0.6 10^3/uL (0.2-0.9) 10/30/23 15:47 Eos # (Auto) 0.1 10^3/uL (0.0-0.8) 10/30/23 15:47 Baso # (Auto) 0.0 10^3/uL (0.0-0.1) 10/30/23 15:47 Nucleated RBC % (auto) 0 % 10/30/23 15:47 Nucleated RBCs # 0.0 /100WBC 10/30/23 15:47 Sodium 142 mmol/L (136-145) 10/30/23 15:47 Potassium 4.2 mmol/L (3.5-5.1) 10/30/23 15:47 Chloride 102 mmol/L (98-107) 10/30/23 15:47 Carbon Dioxide 30 mmol/L (22-29) H 10/30/23 15:47 Anion Gap 14.2 (5-19) 10/30/23 15:47 BUN 12 mg/dL (8-23) 10/30/23 15:47 Creatinine 0.7 mg/dL (0.5-0.9) 10/30/23 15:47 GFR Calculation 82.7 mL/min (90-130) L 10/30/23 15:47 Glucose 101 mg/dL (65-115) 10/30/23 15:47 Calculated Osmolality 294 mOsm/kg (285-295) 10/30/23 15:47 Calcium 9.3 mg/dL (8.5-10.5) 10/30/23 15:47 Total Bilirubin 0.3 mg/dL (0.15-1.2) 10/30/23 15:47 AST 18 U/L (0-32) 10/30/23 15:47 ALT 16 U/L (0-33) 10/30/23 15:47 Alkaline Phosphatase 114 U/L (35-105) H 10/30/23 15:47 Troponin T Baseline < 6 ng/L (0-10) 10/30/23 15:47 Troponin T 120 Minute 6.00 ng/L (0-10) 10/30/23 17:19 Delta Troponin T 0.61584 ABS# (0-10) 10/30/23 17:19 Total Protein 7.0 g/dL (6.6-8.7) 10/30/23 15:47 Albumin 3.8 g/dL (3.5-5.2) 10/30/23 15:47 Globulin 3.2 g/dL (1.3-4.6) 10/30/23 15:47 All radiology interpretation(s) finalized by discharge Discharge Plan Discharge Patient Disposition: Home Clinical Impression: Chest pain Condition: Stable Prescriptions: No Action hydrocodone-acetaminophen 5-325 mg tablet 1 tab PO Q6H PRN (Reason: pain) Qty: 14 0RF Robaxin-750 750 mg tablet 750 mg PO Q6H Qty: 30 0RF methylprednisolone 4 mg tablets,dose pack See Rx Instructions .ROUTE .COMPLEX Qty: 21 0RF Rx Instructions: orally per package directions citalopram 40 mg tablet 40 mg PO DAILY@0700 alprazolam 0.5 mg tablet 0.5 mg PO BID@0700,1999 pregabalin 150 mg capsule 150 mg PO BID@0700,1999 acetaminophen 500 mg Tablet 500 - 1,000 mg PO Q6H PRN (Reason: Pain) famotidine 20 mg tablet 20 mg PO BID@0700,1999 ProAir HFA 90 mcg/actuation HFA aerosol inhaler 1 - 2 puff INHALATION QID PRN (Reason: Wheezing) tramadol 50 mg tablet 50 mg PO Q6H PRN (Reason: pain) Qty: 20 0RF nystatin 100,000 unit/gram powder 1 applic topical DAILY Qty: 60 0RF hydrocodone-acetaminophen 5-325 mg tablet 1 tab PO Q8H PRN (Reason: pain) Qty: 10 0RF Medrol (Car) 4 mg tablets,dose pack See Rx Instructions .ROUTE .COMPLEX Qty: 21 0RF Rx Instructions: orally per package directions Discharge Orders: Discharge ED (Routine); Ordered 10/30/23 Ordered By: Svetlana Nowak Referrals: Riley Walker MD [Primary Care Provider] - Discharge Diet: Usual diet Discharge Activity: Increase activity as tolerated Patient Instructions: Noncardiac Chest Pain (ED) Activity Restrictions/Additional Instructions: Thank you for choosing [facility] for your healthcare needs today. Please realize this is an emergency room and that we are providing you with a medical screening exam and this may not be complete and all inclusive of all the testing and or work up that you may need to determine your ailment or severity of your illness. You have been screened and evaluated and felt safe for discharge. Health conditions do change or evolve sometimes and as such it is important that you follow up with your Primary Doctor to be re checked, 3-5 days is a general good time frame for follow up. You are always welcome to return to the ED for re assessment if your symptoms are worsening or you have new concerns Coding Level of Care Code ED Horse Rancher for Shiloh Alexander
[2023-10-30 15:55] LABS: Basophils % 0.2 %; Eosinophils # 0.1 10^3/uL (0.0-0.8); Eosinophils % 1.1 %; Hematocrit 41.8 % (36-47); Lymphocytes # 0.8 10^3/uL (0.8-4.8); Lymphocytes % 6.2 %; Mean Corpuscular HGB Conc 30.6 g/dL (30-55); Mean Corpuscular Hemoglobin 25.4 pg (27-33); Mean Corpuscular Volume 82.9 fl (85-98); Mean Platelet Volume 10.6 fL (7.4-10.4); Monocytes # 0.6 10^3/uL (0.2-0.9); Monocytes % 4.6 %; Neutrophils # 11.46 10^3/uL (1.8-7.7); Neutrophils % 87.6 %; Nucleated Red Blood Cells % 0 %; Platelet Count 344 10^3/cmm (157-399); Red Blood Count 5.04 10^6/uL (3.85-5.65); Red Cell Distribution Width 16.8 % (12.1-15.1); White Blood Count 13.08 10^3/uL (3.29-11.43)
[2023-10-30 16:06] VITALS: BP 173/86; PULSE 73; O2SAT 98
[2023-10-30] MEDS: aspirin 81 mg Chew Tablet 324 MG PO (16:07)
[2023-10-30 16:15] LABS: Troponin(5th) Baseline < 6 ng/L (0-10)
[2023-10-30 16:22] LABS: Alanine Aminotransferase 16 U/L (0-33); Albumin Level 3.8 g/dL (3.5-5.2); Alkaline Phosphatase 114 U/L (35-105); Anion Gap 14.2 (5-19); Aspartate Amino Transferase 18 U/L (0-32); Blood Urea Nitrogen 12 mg/dL (8-23); Calcium 9.3 mg/dL (8.5-10.5); Carbon Dioxide 30 mmol/L (22-29); Chloride 102 mmol/L (98-107); Creatinine Clr Calc Pharmacy 86.1932; Globulin 3.2 g/dL (1.3-4.6); Glomerular Filtration Rate 82.7 mL/min (90-130); Glucose 101 mg/dL (65-115); Osmolality Calculated 294 mOsm/kg (285-295); Potassium 4.2 mmol/L (3.5-5.1); Sodium 142 mmol/L (136-145); Total Bilirubin 0.3 mg/dL (0.15-1.2)
--- NOTE | 2023-10-30 17:38 | ECG_ITS ---
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 Measurements Intervals [place] Rate: 73 P: 18 RI: 135 QRS: 30 QRSD: 105 T: 30 QT: 390 QTc: 432 Interpretive Statements SINUS RHYTHM Compared to ECG 10/30/2023 15:40:46 No significant changes Electronically Signed On 10-31-2023 11:24:32 CDT by Daniel Allen M.D. [email or web address] [id number]
[2023-10-30 17:59] LABS: Troponin 5 2HR Delta 0.00001 ABS# (0-10)
[2023-10-30 18:05] VITALS: PULSE 78; O2SAT 92
[2023-10-30 18:48] VITALS: BP 173/86; PULSE 78; RESP 22; TEMP 36.4; O2SAT 92
== END 2023-10-30 18:48 | disposition home or self-care (01) ==
PROVIDERS: Family Medicine; Emergency Provider Emergency Medicine; PCP Family Medicine
DX: R07.9 Chest pain, unspecified (principal)
CPT/HCPCS: 36415; 71045; 80053; 84484; 85025; 93005; 99285

== ENCOUNTER 2025-01-08 04:10 | Emergency (ER) | payer OTHER, MEDICAID, SELFPAY ==
--- NOTE | 2025-01-08 04:13 | XRR_ITS ---
PROCEDURE INFORMATION: Exam: XR Chest Exam date and time: 01/08/2025 4:13 AM Age: 74 years old Clinical indication: Pain; Angina pectoris; Additional info: Chest pain TECHNIQUE: Imaging protocol: Radiologic exam of the chest. Views: 1 view. COMPARISON: CR XR chest 1V portable [id number] 10/30/2023 3:53 PM FINDINGS: Lungs: Unremarkable. No consolidation. Pleural spaces: Unremarkable. No pleural effusion. No pneumothorax. Heart/Mediastinum: Unremarkable. No cardiomegaly. Bones/joints: Unremarkable. XR/XR chest 1V portable [id number] IMPRESSION: No acute findings.
--- NOTE | 2025-01-08 04:14 | W.ED.GENADLT ---
Documented by User: Mandy Bedoya MD 01/08/25 05:15 HPI - General Adult General: Chief complaint: Chest Pain Stated complaint: cp Time Seen by Provider: 01/08/25 04:12 History of Present Illness: 74yo F w/pmhx of obesity, depression and anxiety, GERD w/cc of left back pain originating in the muscles around her scapula, radiating to the shoulder and left chest. Pain started around 1-2 AM this morning while patient was resting/sleeping. She states it started as a sharp pain and it feels much better now. She denies fever, malaise, chills. She has not felt short of breath and denies cough, hemoptysis, syncope, leg swelling or edema. She does not have a h/o DVT/PE and is not on estrogen therapy, denies recent sgy or immobilization. Patient states that she also has been very stressed and anxious. She states her son 8y ago at the end of December and his birthday is coming up. She is tearful. She states that for the past couple of weeks, she's been experiencing RUQ and epigastric abd pain w/eating and nausea though she has not vomited. She's not had nausea and diaphoresis this evening while she was having chest pain. She has had a normal BM yesterday w/o blood. No dysuria or hematuria. She also tells me her of a heart attack 3y ago and she is concerned she is having one. She was evaluated in Oct 2023 for similar symptoms and had normal heart enzymes at that time. She did not follow up w/cardiology though she did follow up w/her PCP. She does not take medication for HTN. She states she has white coat hypertension. She has a h/o CCY.. Related Data Home Medications ?Medication ?Instructions ?Recorded ?Confirmed alprazolam 0.5 mg tablet 0.5 mg PO BID@0700,199911/12/19 08/07/20 citalopram 40 mg tablet 40 mg PO DAILY@0700 11/12/19 08/07/20 pregabalin 150 mg capsule 150 mg PO BID@0700,199911/12/19 08/07/20 acetaminophen 500 mg tablet 500 - 1,000 mg PO Q6H PRN Pain 08/07/20 08/07/20 albuterol sulfate 90 mcg/actuation 1 - 2 puff inhalation QID PRN 08/07/20 08/07/20 aerosol inhaler (ProAir HFA) Wheezing famotidine 20 mg tablet 20 mg PO BID@0700,199908/07/20 08/07/20 Previous Rx's ?Medication ?Instructions ?Recorded nystatin 100,000 unit/gram topical 1 applic topical DAILY #60 grams 08/07/20 powder tramadol 50 mg tablet 50 mg PO Q6H PRN pain #20 tabs 08/07/20 hydrocodone 5 mg-acetaminophen 325 1 tab PO Q8H PRN pain #10 tabs 08/16/20 mg tablet methylprednisolone 4 mg tablets in See Rx Instructions PO .COMPLEX 08/16/20 a dose pack (Medrol (Car)) #21 ea hydrocodone 5 mg-acetaminophen 325 1 tab PO Q6H PRN pain #14 tabs 08/29/20 mg tablet methocarbamol 750 mg tablet 750 mg PO Q6H #30 tabs 08/29/20 (Robaxin-750) methylprednisolone 4 mg tablets in See Rx Instructions PO .COMPLEX 09/01/20 a dose pack #21 ea aspirin 81 mg tablet,delayed 81 mg PO DAILY #30 tabs 01/08/25 release isosorbide mononitrate 30 mg 30 mg PO DAILY #30 tabs 01/08/25 tablet,extended release 24 hr Allergies Allergy/AdvReac Type Severity Reaction Status Date / Time bupropion (From Wellbutrin) Allergy Unknown Verified 10/30/23 15:41 codeine Allergy ADR-Nausea Verified 12/05/22 19:59 morphine Allergy Unknown Verified 12/05/22 19:59 [facility] ED PFSH: Medical History (Updated 01/08/25 @ 07:08 by Derick Nolen DO) Chronic respiratory failure with hypoxia Morbid obesity with BMI of 50.0-59.9, adult COVID-19 Depression with anxiety GERD (gastroesophageal reflux disease) Arthritis Surgical History Previous section H/O knee surgery Family History Father Alcoholism Mother Psychiatric illness Social History Smoking and tobacco/nicotine status: never used tobacco/nicotine Physical Exam Narrative: EXAM NARRATIVE: Vital signs were reviewed. Patient is alert and oriented. Patient is breathing comfortably, no increased WOB or accessory muscle use. SpO2 is above 92% on RA. Patient has clear lungs b/l, no rhonchi, wheezing or crackles. No hypotension or tachycardia. Abdomen is soft but she does have tenderness in the upper abdomen and RLQ. She does not have significant tenderness w/percussion of the flanks. She has pain w/palpation of the muscles around the left scapula, neck muscles, and thoracic back muscles. Patient is moving all extremities, no deformity or gross injury. No lower extremity edema or asymmetry. Course Vital Signs: Vital signs: Vital Signs Temperature 97.7 F 01/08/25 04:25 Pulse Rate 77 01/08/25 07:25 Respiratory Rate 16 01/08/25 07:06 Blood Pressure 144/80 01/08/25 07:25 Pulse Oximetry 92 01/08/25 07:25 Oxygen Delivery Me thod Room Air 01/08/25 07:06 MDM - General Adult Medical Decision Making 74yo F w/cc of L thoracic back pain that is radiating to the left chest, atraumatic, sx started this evening around 1-2AM. She has also been experiencing abdominal pain for several weeks, especially in the RLQ and epigastrium. Differential diagnosis includes, but is not limited to, ACS, myocarditis, pericarditis, pneumonia, viral upper respiratory infection, PE, GERD, pancreatitis, hepatitis, gastroenteritis, appendicitis, UTI/pyelonephritis, anxiety, other. On initial exam, patient is hemodynamically stable nontoxic appearing. EKG was personally reviewed and interpreted and shows normal sinus rhythm with a heart rate of 73, normal axis, normal intervals, no STEMI. There are no suspicious TWI or ischemic changes. Comparable to prior. She was treated w/324mg ASA BENCH TOOL MAKER per EMS, treated here w/ativan and tylenol. Evaluated w/CBC, BMP, liver panel, lipase, troponin, UA, EKG, CXR, CT abd/pelvis. I do feel that her back pain in the left upper back has MSK component as it is reproducible w/palaption. I also feel that she has high anxiety now. Lab work demonstrates a normal white blood cell count and no anemia. Patient does not have any actionable electrolyte abnormalities. Patient has a baseline troponin of 11 and a normal BMP, no clinical evidence of heart failure. Chest x-ray was personally reviewed and interpreted and does not show consolidation, pleural effusion, pneumothorax or large/obvious mass. Lab Data 01/08/25 04:20 01/08/25 04:20 Radiology Impressions Chest X-Ray 01/08/25 04:13 IMPRESSION: No acute findings. Abdomen/Pelvis CT 01/08/25 04:45 IMPRESSION: No acute findings. COMMENTS: Consistent with the [place] [employer]'s Incidental Findings Committee white paper (J Am Mc Radiol 2018): Any incidental renal lesion less than 1 cm or classified as too small to characterize, or any incidental cystic renal lesion characterized as simple-appearing, is likely benign. No follow-up imaging is recommended for these lesions per consensus recommendations based on imaging criteria. Laboratory Results WBC 11.09 10^3/uL (3.29-11.43) 01/08/25 04:20 RBC 4.91 10^6/uL (3.85-5.65) 01/08/25 04:20 Hgb 12.60 g/dL (11.27-16.99) 01/08/25 04:20 Hct 41.2 % (36-47) 01/08/25 04:20 MCV 83.9 fl (85-98) L 01/08/25 04:20 MCH 25.7 pg (27-33) L 01/08/25 04:20 MCHC 30.6 g/dL (30-55) 01/08/25 04:20 RDW 16.3 % (12.1-15.1) H 01/08/25 04:20 Plt Count 314 10^3/cmm (157-399) 01/08/25 04:20 MPV 10.4 fL (7.4-10.4) 01/08/25 04:20 Neut % (Auto) 77.3 % 01/08/25 04:20 Lymph % (Auto) 13.0 % 01/08/25 04:20 [place] % (Auto) 7.4 % 01/08/25 04:20 Eos % (Auto) 1.6 % 01/08/25 04:20 Baso % (Auto) 0.4 % 01/08/25 04:20 Neut # (Auto) 8.58 10^3/uL (1.8-7.7) H 01/08/25 04:20 Lymph # (Auto) 1.4 10^3/uL (0.8-4.8) 01/08/25 04:20 [place] # (Auto) 0.8 10^3/uL (0.2-0.9) 01/08/25 04:20 Eos # (Auto) 0.2 10^3/uL (0.0-0.8) 01/08/25 04:20 Baso # (Auto) 0.0 10^3/uL (0.0-0.1) 01/08/25 04:20 Nucleated RBC % (auto) 0 % 01/08/25 04:20 Nucleated RBCs # 0.0 /100WBC 01/08/25 04:20 Sodium 141 mmol/L (136-145) 01/08/25 04:20 Potassium 3.8 mmol/L (3.5-5.1) 01/08/25 04:20 Chloride 100 mmol/L (98-107) 01/08/25 04:20 Carbon Dioxide 30 mmol/L (22-29) H 01/08/25 04:20 Anion Gap 14.8 (5-19) 01/08/25 04:20 BUN 10 mg/dL (8-23) 01/08/25 04:20 Creatinine 0.6 mg/dL (0.5-0.9) 01/08/25 04:20 GFR Calculation Not Reportable 01/08/25 04:20 Glucose 114 mg/dL (65-115) 01/08/25 04:20 Calculated Osmolality 292 mOsm/kg (285-295) 01/08/25 04:20 Calcium 9.1 mg/dL (8.5-10.5) 01/08/25 04:20 Total Bilirubin 0.3 mg/dL (0.15-1.2) 01/08/25 04:20 Direct Bilirubin 0.08 mg/dL (0.00-0.30) 01/08/25 04:20 AST 17 U/L (0-32) 01/08/25 04:20 ALT 12 U/L (0-33) 01/08/25 04:20 Alkaline Phosphatase 92 U/L (35-105) 01/08/25 04:20 Troponin T Baseline 11 ng/L (0-10) H 01/08/25 04:20 Troponin T 120 Minute 7.28 ng/L (0-10) 01/08/25 06:04 Delta Troponin T -3.72 ABS# (0-10) L 01/08/25 06:04 NT-Pro-B Natriuret Pep 125 pg/mL (0-125) 01/08/25 04:20 Total Protein 6.5 g/dL (6.6-8.7) L 01/08/25 04:20 Albumin 3.8 g/dL (3.5-5.2) 01/08/25 04:20 Globulin 2.7 g/dL (1.3-4.6) 01/08/25 04:20 Lipase 17 U/L (13-60) 01/08/25 04:20 Urine Color Yellow (Yellow) 01/08/25 05:41 Urine Appearance Clear (CLEAR) 01/08/25 05:41 Urine pH 6.0 (5-7) 01/08/25 05:41 Ur Specific [place] 1.023 (1.005-1.030) 01/08/25 05:41 Urine Protein Negative (Negative) 01/08/25 05:41 Urine Glucose (UA) Negative (Normal) 01/08/25 05:41 Urine Ketones Negative (Negative) 01/08/25 05:41 Urine Blood Negative (Negative) 01/08/25 05:41 Urine Nitrate Negative (Negative) 01/08/25 05:41 Urine Bilirubin Negative (Negative) 01/08/25 05:41 Urine Urobilinogen 1.0 mg/dL (Negative) 01/08/25 05:41 Ur Leukocyte Esterase Negative (Negative) 01/08/25 05:41 Urine RBC 0-2 /hpf (0-2) 01/08/25 05:41 Urine WBC 6-10 /hpf (0-5) 01/08/25 05:41 Ur Squamous Epith Cells 6-10 /hpf (0-5) 01/08/25 05:41 Amorphous Sediment Not Reportable 01/08/25 05:41 Urine Bacteria None seen /hpf (NONE) 01/08/25 05:41 Hyaline Casts 0.40 /lpf 01/08/25 05:41 Discharge Plan Discharge Patient Disposition: Home Clinical Impression: Atypical chest pain, Depression with anxiety Condition: Stable Prescriptions: New isosorbide mononitrate 30 mg tablet extended release 24 hr 30 mg PO DAILY Qty: 30 0RF aspirin 81 mg tablet,delayed release (DR/EC) 81 mg PO DAILY Qty: 30 0RF No Action hydrocodone-acetaminophen 5-325 mg tablet 1 tab PO Q6H PRN (Reason: pain) Qty: 14 0RF Robaxin-750 750 mg tablet 750 mg PO Q6H Qty: 30 0RF methylprednisolone 4 mg tablets,dose pack See Rx Instructions .ROUTE .COMPLEX Qty: 21 0RF Rx Instructions: orally per package directions citalopram 40 mg tablet 40 mg PO DAILY@0700 alprazolam 0.5 mg tablet 0.5 mg PO BID@0700,1999 pregabalin 150 mg capsule 150 mg PO BID@0700,1999 acetaminophen 500 mg Tablet 500 - 1,000 mg PO Q6H PRN (Reason: Pain) famotidine 20 mg tablet 20 mg PO BID@0700,1999 ProAir HFA 90 mcg/actuation HFA aerosol inhaler 1 - 2 puff INHALATION QID PRN (Reason: Wheezing) tramadol 50 mg tablet 50 mg PO Q6H PRN (Reason: pain) Qty: 20 0RF nystatin 100,000 unit/gram powder 1 applic topical DAILY Qty: 60 0RF hydrocodone-acetaminophen 5-325 mg tablet 1 tab PO Q8H PRN (Reason: pain) Qty: 10 0RF Medrol (Car) 4 mg tablets,dose pack See Rx Instructions .ROUTE .COMPLEX Qty: 21 0RF Rx Instructions: orally per package directions Discharge Orders: Discharge ED (Routine); Ordered 01/08/25 Ordered By: Derick Nolen Referrals: Riley Walker MD [Primary Care Provider, Family Practice] Discharge Diet: Usual diet Discharge Activity: Limit activity as instructed Patient Instructions: Opioid Safety, Pain Management, Patient Portal & Gideon Instructions Activity Restrictions/Additional Instructions: Thank you for choosing [facility] for your healthcare needs today. It is very important that you follow up as instructed or that you return to the Emergency Department should you have concerns or if your condition changes or worsens in any way. Emergency department visits are focused on emergent conditions, in some cases you may require further evaluation on an outpatient basis. You were seen in the emergency room with complaints of abdominal pain and chest pain your cardiac enzymes and EKGs did not show any significant abnormalities your troponins did not have an increase. CT of your abdomen was unremarkable the remainder of your labs did not show any clinically significant abnormalities. At this time there is no emergent condition noted. Will discharge you home blood pressure was slightly elevated recommend you start on isosorbide mononitrate 30 mg once daily baby aspirin daily and we will set you up for an outpatient stress test and follow-up with cardiology. (Please note that included in your discharge packet is information concerning opioid safety and pain management. This information is given to all patients were discharged from the ER regardless of their discharge diagnosis or the medicines they usually take or are prescribed.) Print Language: Macedonian Coding Level of Care Code ED Interior Painter for Jameyg Fwd Documented by User: Derick Nolen DO 01/08/25 10:38 HPI - General Adult General: Chief complaint: Chest Pain Stated complaint: cp Time Seen by Provider: 01/08/25 04:12 Related Data Home Medications ?Medication ?Instructions ?Recorded ?Confirmed alprazolam 0.5 mg tablet 0.5 mg PO BID@0700,199911/12/19 08/07/20 citalopram 40 mg tablet 40 mg PO DAILY@0711/12/19 08/07/20 pregabalin 150 mg capsule 150 mg PO BID@0700,199911/12/19 08/07/20 acetaminophen 500 mg tablet 500 - 1,000 mg PO Q6H PRN Pain 08/07/20 08/07/20 albuterol sulfate 90 mcg/actuation 1 - 2 puff inhalation QID PRN 08/07/20 08/07/20 aerosol inhaler (ProAir HFA) Wheezing famotidine 20 mg tablet 20 mg PO BID@0700,199908/07/20 08/07/20 Previous Rx's ?Medication ?Instructions ?Recorded nystatin 100,000 unit/gram topical 1 applic topical DAILY #60 grams 08/07/20 powder tramadol 50 mg tablet 50 mg PO Q6H PRN pain #20 tabs 08/07/20 hydrocodone 5 mg-acetaminophen 325 1 tab PO Q8H PRN pain #10 tabs 08/16/20 mg tablet methylprednisolone 4 mg tablets in See Rx Instructions PO .COMPLEX 08/16/20 a dose pack (Medrol (Car)) #21 ea hydrocodone 5 mg-acetaminophen 325 1 tab PO Q6H PRN pain #14 tabs 08/29/20 mg tablet methocarbamol 750 mg tablet 750 mg PO Q6H #30 tabs 08/29/20 (Robaxin-750) methylprednisolone 4 mg tablets in See Rx Instructions PO .COMPLEX 09/01/20 a dose pack #21 ea aspirin 81 mg tablet,delayed 81 mg PO DAILY #30 tabs 01/08/25 release isosorbide mononitrate 30 mg 30 mg PO DAILY #30 tabs 01/08/25 tablet,extended release 24 hr Allergies Allergy/AdvReac Type Severity Reaction Status Date / Time bupropion (From Wellbutrin) Allergy Unknown Verified 10/30/23 15:41 codeine Allergy ADR-Nausea Verified 12/05/22 19:59 morphine Allergy Unknown Verified 12/05/22 19:59 [facility] ED PFSH: Medical History (Updated 01/08/25 @ 07:08 by Derick Nolen DO) Chronic respiratory failure with hypoxia Morbid obesity with BMI of 50.0-59.9, adult COVID-19 Depression with anxiety GERD (gastroesophageal reflux disease) Arthritis Surgical History Previous section H/O knee surgery Family History Father Alcoholism Mother Psychiatric illness Social History Smoking and tobacco/nicotine status: never used tobacco/nicotine Course Vital Signs: Vital signs: Vital Signs Temperature 97.7 F 01/08/25 04:25 Pulse Rate 77 01/08/25 07:25 Respiratory Rate 16 01/08/25 07:06 Blood Pressure 144/80 01/08/25 07:25 Pulse Oximetry 92 01/08/25 07:25 Oxygen Delivery Me thod Room Air 01/08/25 07:06 MDM - General Adult Medical Decision Making 74yo F w/cc of L thoracic back pain that is radiating to the left chest, atraumatic, sx started this evening around 1-2AM. She has also been experiencing abdominal pain for several weeks, especially in the RLQ and epigastrium. Differential diagnosis includes, but is not limited to, ACS, myocarditis, pericarditis, pneumonia, viral upper respiratory infection, PE, GERD, pancreatitis, hepatitis, gastroenteritis, appendicitis, UTI/pyelonephritis, anxiety, other. On initial exam, patient is hemodynamically stable nontoxic appearing. EKG was personally reviewed and interpreted and shows normal sinus rhythm with a heart rate of 73, normal axis, normal intervals, no STEMI. There are no suspicious TWI or ischemic changes. Comparable to prior. She was treated w/324mg ASA BENCH TOOL MAKER per EMS, treated here w/ativan and tylenol. Evaluated w/CBC, BMP, liver panel, lipase, troponin, UA, EKG, CXR, CT abd/pelvis. I do feel that her back pain in the left upper back has MSK component as it is reproducible w/palaption. I also feel that she has high anxiety now. Lab work demonstrates a normal white blood cell count and no anemia. Patient does not have any actionable electrolyte abnormalities. Patient has a baseline troponin of 11 and a normal BMP, no clinical evidence of heart failure. Chest x-ray was personally reviewed and interpreted and does not show consolidation, pleural effusion, pneumothorax or large/obvious mass. CT of the abdomen is negative. Cardiac enzymes trending negative. Second EKG showed sinus rhythm with a rate of 72 ID interval 142 and QTc of 426 no acute changes compared to previous EKG done earlier same day is unchanged. Patient be discharged from the ER started on isosorbide mononitrate as well as baby aspirin daily set her up for outpatient stress test and follow-up with cardiology. Lab Data 01/08/25 04:20 01/08/25 04:20 Radiology Impressions Chest X-Ray 01/08/25 04:13 IMPRESSION: No acute findings. Abdomen/Pelvis CT 01/08/25 04:45 IMPRESSION: No acute findings. COMMENTS: Consistent with the [place] [employer]'s Incidental Findings Committee white paper (J Am Mc Radiol 2018): Any incidental renal lesion less than 1 cm or classified as too small to characterize, or any incidental cystic renal lesion characterized as simple-appearing, is likely benign. No follow-up imaging is recommended for these lesions per consensus recommendations based on imaging criteria. Laboratory Results WBC 11.09 10^3/uL (3.29-11.43) 01/08/25 04:20 RBC 4.91 10^6/uL (3.85-5.65) 01/08/25 04:20 Hgb 12.60 g/dL (11.27-16.99) 01/08/25 04:20 Hct 41.2 % (36-47) 01/08/25 04:20 MCV 83.9 fl (85-98) L 01/08/25 04:20 MCH 25.7 pg (27-33) L 01/08/25 04:20 MCHC 30.6 g/dL (30-55) 01/08/25 04:20 RDW 16.3 % (12.1-15.1) H 01/08/25 04:20 Plt Count 314 10^3/cmm (157-399) 01/08/25 04:20 MPV 10.4 fL (7.4-10.4) 01/08/25 04:20 Neut % (Auto) 77.3 % 01/08/25 04:20 Lymph % (Auto) 13.0 % 01/08/25 04:20 [place] % (Auto) 7.4 % 01/08/25 04:20 Eos % (Auto) 1.6 % 01/08/25 04:20 Baso % (Auto) 0.4 % 01/08/25 04:20 Neut # (Auto) 8.58 10^3/uL (1.8-7.7) H 01/08/25 04:20 Lymph # (Auto) 1.4 10^3/uL (0.8-4.8) 01/08/25 04:20 [place] # (Auto) 0.8 10^3/uL (0.2-0.9) 01/08/25 04:20 Eos # (Auto) 0.2 10^3/uL (0.0-0.8) 01/08/25 04:20 Baso # (Auto) 0.0 10^3/uL (0.0-0.1) 01/08/25 04:20 Nucleated RBC % (auto) 0 % 01/08/25 04:20 Nucleated RBCs # 0.0 /100WBC 01/08/25 04:20 Sodium 141 mmol/L (136-145) 01/08/25 04:20 Potassium 3.8 mmol/L (3.5-5.1) 01/08/25 04:20 Chloride 100 mmol/L (98-107) 01/08/25 04:20 Carbon Dioxide 30 mmol/L (22-29) H 01/08/25 04:20 Anion Gap 14.8 (5-19) 01/08/25 04:20 BUN 10 mg/dL (8-23) 01/08/25 04:20 Creatinine 0.6 mg/dL (0.5-0.9) 01/08/25 04:20 GFR Calculation Not Reportable 01/08/25 04:20 Glucose 114 mg/dL (65-115) 01/08/25 04:20 Calculated Osmolality 292 mOsm/kg (285-295) 01/08/25 04:20 Calcium 9.1 mg/dL (8.5-10.5) 01/08/25 04:20 Total Bilirubin 0.3 mg/dL (0.15-1.2) 01/08/25 04:20 Direct Bilirubin 0.08 mg/dL (0.00-0.30) 01/08/25 04:20 AST 17 U/L (0-32) 01/08/25 04:20 ALT 12 U/L (0-33) 01/08/25 04:20 Alkaline Phosphatase 92 U/L (35-105) 01/08/25 04:20 Troponin T Baseline 11 ng/L (0-10) H 01/08/25 04:20 Troponin T 120 Minute 7.28 ng/L (0-10) 01/08/25 06:04 Delta Troponin T -3.72 ABS# (0-10) L 01/08/25 06:04 NT-Pro-B Natriuret Pep 125 pg/mL (0-125) 01/08/25 04:20 Total Protein 6.5 g/dL (6.6-8.7) L 01/08/25 04:20 Albumin 3.8 g/dL (3.5-5.2) 01/08/25 04:20 Globulin 2.7 g/dL (1.3-4.6) 01/08/25 04:20 Lipase 17 U/L (13-60) 01/08/25 04:20 Urine Color Yellow (Yellow) 01/08/25 05:41 Urine Appearance Clear (CLEAR) 01/08/25 05:41 Urine pH 6.0 (5-7) 01/08/25 05:41 Ur Specific [place] 1.023 (1.005-1.030) 01/08/25 05:41 Urine Protein Negative (Negative) 01/08/25 05:41 Urine Glucose (UA) Negative (Normal) 01/08/25 05:41 Urine Ketones Negative (Negative) 01/08/25 05:41 Urine Blood Negative (Negative) 01/08/25 05:41 Urine Nitrate Negative (Negative) 01/08/25 05:41 Urine Bilirubin Negative (Negative) 01/08/25 05:41 Urine Urobilinogen 1.0 mg/dL (Negative) 01/08/25 05:41 Ur Leukocyte Esterase Negative (Negative) 01/08/25 05:41 Urine RBC 0-2 /hpf (0-2) 01/08/25 05:41 Urine WBC 6-10 /hpf (0-5) 01/08/25 05:41 Ur Squamous Epith Cells 6-10 /hpf (0-5) 01/08/25 05:41 Amorphous Sediment Not Reportable 01/08/25 05:41 Urine Bacteria None seen /hpf (NONE) 01/08/25 05:41 Hyaline Casts 0.40 /lpf 01/08/25 05:41 All radiology interpretation(s) finalized by discharge Discharge Plan Discharge Patient Disposition: Home Clinical Impression: Atypical chest pain, Depression with anxiety Condition: Stable Prescriptions: New isosorbide mononitrate 30 mg tablet extended release 24 hr 30 mg PO DAILY Qty: 30 0RF aspirin 81 mg tablet,delayed release (DR/EC) 81 mg PO DAILY Qty: 30 0RF No Action hydrocodone-acetaminophen 5-325 mg tablet 1 tab PO Q6H PRN (Reason: pain) Qty: 14 0RF Robaxin-750 750 mg tablet 750 mg PO Q6H Qty: 30 0RF methylprednisolone 4 mg tablets,dose pack See Rx Instructions .ROUTE .COMPLEX Qty: 21 0RF Rx Instructions: orally per package directions citalopram 40 mg tablet 40 mg PO DAILY@0700 alprazolam 0.5 mg tablet 0.5 mg PO BID@07,1999 pregabalin 150 mg capsule 150 mg PO BID@0700,1999 acetaminophen 500 mg Tablet 500 - 1,000 mg PO Q6H PRN (Reason: Pain) famotidine 20 mg tablet 20 mg PO BID@0700,1999 ProAir HFA 90 mcg/actuation HFA aerosol inhaler 1 - 2 puff INHALATION QID PRN (Reason: Wheezing) tramadol 50 mg tablet 50 mg PO Q6H PRN (Reason: pain) Qty: 20 0RF nystatin 100,000 unit/gram powder 1 applic topical DAILY Qty: 60 0RF hydrocodone-acetaminophen 5-325 mg tablet 1 tab PO Q8H PRN (Reason: pain) Qty: 10 0RF Medrol (Car) 4 mg tablets,dose pack See Rx Instructions .ROUTE .COMPLEX Qty: 21 0RF Rx Instructions: orally per package directions Discharge Orders: Discharge ED (Routine); Ordered 01/08/25 Ordered By: Derick Nolen Referrals: Riley Walker MD [Primary Care Provider, Family Practice] Discharge Diet: Usual diet Discharge Activity: Limit activity as instructed Patient Instructions: Opioid Safety, Pain Management, Patient Portal & Gideon Instructions Activity Restrictions/Additional Instructions: Thank you for choosing [facility] for your healthcare needs today. It is very important that you follow up as instructed or that you return to the Emergency Department should you have concerns or if your condition changes or worsens in any way. Emergency department visits are focused on emergent conditions, in some cases you may require further evaluation on an outpatient basis. You were seen in the emergency room with complaints of abdominal pain and chest pain your cardiac enzymes and EKGs did not show any significant abnormalities your troponins did not have an increase. CT of your abdomen was unremarkable the remainder of your labs did not show any clinically significant abnormalities. At this time there is no emergent condition noted. Will discharge you home blood pressure was slightly elevated recommend you start on isosorbide mononitrate 30 mg once daily baby aspirin daily and we will set you up for an outpatient stress test and follow-up with cardiology. (Please note that included in your discharge packet is information concerning opioid safety and pain management. This information is given to all patients were discharged from the ER regardless of their discharge diagnosis or the medicines they usually take or are prescribed.) Print Language: Macedonian Coding Level of Care Code ED Interior Painter for Shiloh Alexander
[2025-01-08 04:17] VITALS: BP 165/76; PULSE 70; RESP 18; TEMP 36.5; O2SAT 97; BMI 47.4
--- OUTSIDE RECORDS SUMMARY | 2025-01-08 04:19 | XMS_ITS | Data Portability ---
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 alprazola m two times daily 02/01 completed Recorded 05/27/19 7:20PM by Mychal Hall DO, Refill Request; Refill Quantity : 0; Not Available Not Available Not Available Lyrica three times daily 02/01 completed Recorded 03/27/19 4:07PM by Riley Walker MD, Refill Request; Refill Quantity : 90; Capsule; Not Available Not Available Not Available ferrous gluconate 324 mg (38 mg iron) tablet TAKE 1 TABLET BY MOUTH EVERY OTHER DAY active Not Available Not Available No t Available Probiotic 08/06 completed Not Available Not Available Not Available Vitals Date Recorded Body height Body mass index (BMI) Body weight Body temperature Heart rate Oxygen saturation Oxygen saturation in Arterial blood by Pulse oximetry Systolic And Diastolic Provider Name and Address Organization Details Last Updated DateTime 5 160.02 cm 53.1 kg/m2 102721. 71 g 97.4 [degF] 84 /min 93 % 93 % 138/84 mm[Hg] Eloise Torrez [facility] 5 13:51:11 Date Recorded Body height Body mass index (BMI) Body weight Body temperature Heart rate Oxygen saturation Oxygen saturation in Arterial blood by Pulse oximetry Systolic And Diastolic Provider Name and Address Organization Details Last Updated DateTime 4 160.02 cm 52.1 kg/m2 473290. 16 g 97.6 [degF] 104 /min 92 % 92 % 160/84 mm[Hg] DARIA WAHL [facility] 4 12:12:54 Date Recorded Body height Body mass index (BMI) Body weight Body temperature Oxygen saturation Oxygen saturation in Arterial blood by Pulse oximetry Heart rate Systolic And Diastolic Provider Name and Address Organization Details Last Updated DateTime 4 160.02 cm 52.8 kg/m2 818491. 53 g 98.1 [degF] 90 % 90 % 85 /min 165/92 mm[Hg] AVINASH HAWK [facility] 4 12:12:26 Date Recorded Body weight Body mass index (BMI) Body height Body temperature Heart rate Oxygen saturation Oxygen saturation in Arterial blood by Pulse oximetry Systolic And Diastolic Provider Name and Address Organization Details Last Updated DateTime 3 481508. 09 g 49.1 kg/m2 160.02 cm 98 [degF] 78 /min 93 % 93 % 152/92 mm[Hg] Eloise Torrez [facility] 3 12:06:03 Social History None recorded. Functional Status Question Answer Note LastModified by Organizat ion Details LastModified Time Do you use any illicit or recreational drugs? No Information not available 08/06/2023 Do you or have you ever used any other forms of tobacco or nicotine? No [email or web address] Information not available 08/06/2023 What is your level of alcohol consumption? None [email or web address] Information not available 08/06/2023 Mental Status None recorded. Family History Relationship Description Onset Age of this Age Resolved Age Notes LastModified by Organization Details LastModified Time Father Malignant neoplasm of lung [email or web address] Not available 08/05 17:49:31 Father Alcoholism [email or web address] Not avail able 08/06/2023 17:49:47 Medical History No medical history recorded. Gynecological HistoryNo gynecological history recorded. Obstetrics History GPAL:G 0 P 0 0 0 0 Immunizations Vaccine Type Date Status Note Provider Nam e and Address Organization Details Recorded Time Influenza, split virus, trivalent, preservative 0 completed Not Available [facility] 10/14/2022 02:24:58 Influenza, split virus, trivalent, preservative 8 completed Not Available [facility] 10/14/2022 02:24:58 Pneumococcal conjugate PCV 13 8 completed Not Available [facility] 10/14/2022 02:24:58 Past Encounters Encounter ID Performer Location Encounter Start Date Encounter Closed Date Diagnosis/Indication Diagnosis SNOMED-CT Code Diagnosis ICD10 Code Diagnosis IMO Codes Diagnosis Note [id number] Riley Walker MD [facility] ([facility]) [address] [place] [address] 07/31/2022 10:16:32 07/31/2022 17:43:31 Body mass index 40+ - severely obese 695189124 Z68.42 Sedative, hypnotic AND/OR anxiolytic-related disorder 057835047 F13.99 Problem of aging 4969856 1 R54 Major depr essive disorder 191694769 F32.9 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 25211394 F33.2 [id number] Riley Walker MD [facility] ([facility]) [address] [place] [phone] 02/01/2023 11:04:57 02/01/2023 12:35:35 Cellulitis of right upper limb 1063923576 0566824 L03.113 right upper lateral forearm 2 cm skin tear bleeding normal rom4 cm of surroundin g erythemath ere is no abscess or drainage if abscess, fever or spreading redness f/u or to er right away Microcytosis 794309635 R 71.8 Non-alcoho lic fatty liver 038097169 K76.0 she declines imaging or further workup to prevent cirrhosis [id number] Riley Walker MD [facility] ([facility]) [address] [place] [phone] 5 08/02/2023 11:33:16 08/02/2023 12:04:41 Benign hypertension 73104507 I10 Microcytosis 729459630 R 71.8 [id number] Riley Walker MD [facility] ([facility]) [address] [place] [phone] 5 08/07/2023 11:45:08 08/07/2023 13:30:26 Sedative, hypnotic AND/OR anxiolytic-related disorder 188005453 F13.99 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 she remains depressed and i recommende d adding wellbutrin as an adjunct as she is also stress eating. i worry about possibly exacerbati ng panic. . she remains very agoraphobi c. alprazolam is while not my first choice really she has extreme anxiety issues which require a sedative at times to function leave the house etc. she has an extreme issue with her daughter in law. i have recommende d the book boundaries to help her with that. i have asked her to reduce alprazolam to 1/2 tablet on better days. she will consider starting there. 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 she still will not allow me to help her with really anythign but especially the depresion through counseling or medication etc. however she is palomo. Anxiety 81799080 F41.9 Essential hypertension 49085509 I10 Anemia 602362192 D64.9 Elevated blood-pressure reading without diagnosis of hypertension 351424403 R03.0 Hyperglycemia 05991609 R 73.9 she is not fasting. 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 she still will not allow me to help her with really anythign but especially the depression through counseling or medication etc. however she is better. Low back pain 954626326 M54.50 Problem of aging 7590444 1 R54 Abnormal gait 81083611 R 26.2 Body mass index 40+ - severely obese 492006606 Z68.43 4729811599 Reduced mobility 6222930 Z74.09 3546942 Does mobil ize using walker 201292797 Z99.89 16800682 Folic acid deficiency 19 8090594 E53.8 Iron deficiency 17004072 E61.1 Health Concerns Section Related Observation LastModified by Organization Detai ls LastModified Time None Recorded Concern Status LastModified by Organization Details LastModified Time None Recorded Advance Directives Directive None Recorded Payers Insurance Date Sequence Insurance Name Policy Number Policy Noyola Covered Member ID Noyola Member ID Guarantor Name 08/03/2024 1 [employer] [place]IC[place]/A DVANTAGE - HMO) Miguel A Pollard [id number] Miguel A Pollard 07/28/2024 2 [place] Miguel A Pollard [id number] Miguel A Pollard 07/28/2024 [place] [facility] Miguel A Pollard [id number] Miguel A Pollard Notes Date Note Type Note Provider Name and Address Organization Details Recorded Time 3 text/html Anxiety/DepressionReport ed by PatientHPIFor severity, patient reportsinterference with activities of daily living. For context, patient reportsbereavement(mourn ing the loss of her eldest son and her ). For associated symptoms, patient reportsanxiety,grieving, restlessness/agitation,s leep disturbances (5 hours per night),low self-esteem,functional impairment, anddecreased energy.Pt also states she has been having problems with low back pain on her right side as well as restless legs. these are controlled when she takes her prgabalin. She also has a dog scratch on her right arm from a few weeks ago that she would like looked at as well. we discussed supportive care for rlsROS as noted in the HPI home bps are very good TOYA samaniego [facility], [place] 02/01/2023 12:33:28 4 text/html Anxiety/DepressionReport ed by PatientHPIFor severity, patient reportsinterference with activities of daily living. For context, patient reportsbereavement(mourn ing the loss of her eldest son and her ). For associated symptoms, patient reportsanxiety,grieving, restlessness/agitation,s leep disturbances (5 hours per night),low self-esteem,functional impairment, anddecreased energy.Pt also states she has been having problems with low back pain on her right side as well as restless legs. these are controlled when she takes her pregabalin. EdemaReported by PatientHPIFor location, patient reportsrle. For duration, patient reportsintermittent. For onset/timing, patient reportsstarted 2 weeks ago. For context, patient reportsno prior history of edemaandno prior history of deep vein thrombosis. For modifying factors, patient reportsrelieved by position (elevating legs). For associated symptoms, patient reportsno shortness of breath,no chest pain, andno palpitations.ROS as noted in the HPI home bps are very good 120-130/70-80 patient reports that she hasn't been able to continue her iron because it causes severe constipation Riley Walker MD [address] [place] [address], [phone], [facility] 08/07/2023 12:53:44 4 text/html ROS as noted in the HPI Sunday she started a new diet no sodas drinking only water. she is getting a new frame of mind and getting up and movning more. Riley Walker MD [address] [place] [address], [phone], [facility] 01/31/2024 12:44:33 5 text/html Anxiety/DepressionReport ed by PatientHPIFor severity, patient reportsinterference with activities of daily livingbut reportssymptoms improved. For context, patient reportsbereavement(mourn ing the loss of her eldest son and her ). For associated symptoms, patient reportsanxiety,depressio n,grieving,restlessness/ agitation,sleep disturbances (about 5 hours per night),low self-esteem,functional impairment, anddecreased energy. EdemaReported by PatientHPIFor associated symptoms, patient reportsshortness of breath with exertionbut reportsno chest painandno palpitations. For location, patient reportslle. For duration, patient reportsintermittent. For modifying factors, patient reportsrelieved by position (elevating legs).ROS as noted in the HPI Pt states she has not stuck with any diet. She is still drinking soda. No current exercise routine. Pt states her headaches have been improving. Riley Walker MD [address] [place], [address], [facility] 08/04/2024 14:50:38 OBGyn Episode No OBEpisode recorded.
[2025-01-08 04:22] LABS: Hematocrit 41.2 % (36-47); Hemoglobin 12.60 g/dL (11.27-16.99); Mean Corpuscular HGB Conc 30.6 g/dL (30-55); Mean Corpuscular Hemoglobin 25.7 pg (27-33); Mean Corpuscular Volume 83.9 fl (85-98); Nucleated Red Blood Cells % 0 %; Platelet Count 314 10^3/cmm (157-399); Red Blood Count 4.91 10^6/uL (3.85-5.65); White Blood Count 11.09 10^3/uL (3.29-11.43)
--- NOTE | 2025-01-08 04:24 | ECG_ITS ---
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 Measurements Intervals [place] Rate: 73 P: 60 VT: 137 QRS: 58 QRSD: 101 T: 56 QT: 406 QTc: 448 Interpretive Statements SINUS RHYTHM WITH OCCASIONAL SUPRAVENTRICULAR PREMATURE COMPLEXES Compared to ECG 10/30/2023 17:09:47 No significant changes Electronically Signed On 01-09-2025 15:26:08 CDT by Kaden Tate M.D. [email or web address] [id number]
[2025-01-08 04:25] VITALS: BP 165/76; PULSE 70; RESP 18; TEMP 36.5; O2SAT 97
[2025-01-08 04:36] LABS: Troponin(5th) Baseline 11 ng/L (0-10)
--- NOTE | 2025-01-08 04:45 | CTR_ITS ---
PROCEDURE INFORMATION: Exam: CT Abdomen And Pelvis With Contrast Exam date and time: 01/08/2025 5:05 AM Age: 74 years old Clinical indication: Abdominal pain; Additional info: Upper and ruq abd pain TECHNIQUE: Imaging protocol: Computed tomography of the abdomen and pelvis with contrast. Radiation optimization: All CT scans at this facility use at least one of these dose optimization techniques: automated exposure control; mA and/or kV adjustment per patient size (includes targeted exams where dose is matched to clinical indication); or iterative reconstruction. Contrast material: OMNI 350; Contrast volume: 100 ml; Contrast route: INTRAVENOUS (IV); COMPARISON: CR (PELVIS, ) 08/29/2020 12:04 AM RADIATION DOSE METRICS: Total DLP (mGy-cm): 1293.93 FINDINGS: Liver: Normal. No mass. Gallbladder and biliary ducts: Cholecystectomy. Pancreas: Normal. No ductal dilation. Spleen: Normal. No splenomegaly. Adrenal glands: Mild nodular hyperplasia of the adrenals. Kidneys and ureters: Small left renal cyst. Stomach and bowel: Unremarkable. No obstruction. No mucosal thickening. Appendix: No evidence of appendicitis. Intraperitoneal space: Unremarkable. No free air. No significant fluid collection. Vasculature: Unremarkable. No abdominal aortic aneurysm. Lymph nodes: Unremarkable. No enlarged lymph nodes. Urinary bladder: Unremarkable as visualized. Reproductive: Hysterectomy. Bones/joints: Unremarkable. No acute fracture. Soft tissues: Small umbilical hernia containing only fat. CT/CT abdomen pelvis w con* [id number] IMPRESSION: No acute findings. COMMENTS: Consistent with the [place] [employer]'s Incidental Findings Committee white paper (J Am Mc Radiol 2018): Any incidental renal lesion less than 1 cm or classified as too small to characterize, or any incidental cystic renal lesion characterized as simple-appearing, is likely benign. No follow-up imaging is recommended for these lesions per consensus recommendations based on imaging criteria.
[2025-01-08 04:53] LABS: Blood Urea Nitrogen 10 mg/dL (8-23); Calcium 9.1 mg/dL (8.5-10.5); Carbon Dioxide 30 mmol/L (22-29); Chloride 100 mmol/L (98-107); Creatinine Clr Calc Pharmacy 86.2079; Glucose 114 mg/dL (65-115); NT Pro B Type Natriuretic Pept 125 pg/mL (0-125); Osmolality Calculated 292 mOsm/kg (285-295); Sodium 141 mmol/L (136-145)
[2025-01-08 04:55] LABS: Anion Gap 14.8 (5-19); Potassium 3.8 mmol/L (3.5-5.1)
[2025-01-08 05:25] LABS: Alanine Aminotransferase 12 U/L (0-33); Albumin Level 3.8 g/dL (3.5-5.2); Alkaline Phosphatase 92 U/L (35-105); Aspartate Amino Transferase 17 U/L (0-32); Globulin 2.7 g/dL (1.3-4.6); Lipase 17 U/L (13-60); Total Protein 6.5 g/dL (6.6-8.7)
[2025-01-08] MEDS: iohexol 350 mg/mL 500 mL Btl (per mL) IV (05:27)
[2025-01-08] MEDS: LORazepam 1 MG/0.5 ML injection IVP (05:43)
[2025-01-08 05:47] VITALS: BP 173/72; PULSE 73; RESP 18; O2SAT 95
[2025-01-08 05:50] LABS: Glucose Urine UA Negative (Normal); Nitrate Urine Negative (Negative); Specific Gravity, Urine 1.023 (1.005-1.030)
[2025-01-08 05:55] LABS: Add Urine Microscopic? YES
--- NOTE | 2025-01-08 06:16 | ECG_ITS ---
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 Measurements Intervals [place] Rate: 72 P: 40 NC: 142 QRS: 48 QRSD: 105 T: 36 QT: 401 QTc: 441 Interpretive Statements SINUS RHYTHM Compared to ECG 01/08/2025 04:24:01 No significant changes Electronically Signed On 01-09-2025 15:30:09 CDT by Kaden Tate M.D. [email or web address]
[2025-01-08 06:29] LABS: Troponin 5 2HR 7.28 ng/L (0-10)
[2025-01-08 06:56] LABS: Troponin 5 2HR Delta -3.72 ABS# (0-10)
[2025-01-08 07:06] VITALS: BP 144/80; PULSE 78; RESP 16; O2SAT 92
[2025-01-08 07:25] VITALS: BP 144/80; PULSE 77; O2SAT 92
--- NOTE | 2025-01-09 08:29 | DCPLANNER ---
faxed outpatient haresh order to scheduling and messaged heart care for er f/u
== END 2025-01-08 07:26 | disposition home or self-care (01) ==
PROVIDERS: Emergency Provider Emergency Medicine; PCP Family Medicine
DX: R07.89 Other chest pain (principal); F32.A Depression, unspecified; F41.9 Anxiety disorder, unspecified; I10 Essential (primary) hypertension
CPT/HCPCS: 36415; 71045; 74177; 80048; 80076; 81001; 83690; 83880; 84484; 85025; 93005; 96374; 99285; J2060; J9999